=== PATIENT | female | born 1955 | race Caucasian/White ===

== ENCOUNTER 2020-04-18 08:53 | Emergency (ER) | payer BC, SELFPAY ==
--- NOTE | ~2020-04-18 | XR_ITS ---
EXAMINATION: XR hand LT min 3V INDICATION: Left hand swelling and pain TECHNIQUE: Three views of the left hand are obtained. COMPARISON: None available FINDINGS: There is no fracture, dislocation, or subluxation. There is mild polyarticular osteoarthrit is. Soft tissues are unremarkable. IMPRESSION: 1. No acute osseous abnormality. Reviewed, dictated and finalized at location A.
--- NOTE | 2020-04-18 09:10 | ED.UPPEXIN ---
HPI - Extremity Injury (Upper) General Chief Complaint: Extremity Injury, Upper Stated Complaint: fell left thumb /3rd-4th finger Time Seen by Provider: 04/18/20 09:10 Source: patient Mode of arrival: ambulatory Limitations: no limitations History of Present Illness HPI narrative: Jihan Rosario is a 64 yo female with a PMH of HTN, hypothyroid, GERD, RA, lupus, who fell in grass yesterday playing ball with granddaughter and hit dorsum of L hand, base of fingers 3/4. Mild swelling, no bruising. Limited finger movement Related Data Home Medications Medication Instructions Recorded Confirmed omeprazole magnesium 20 mg 20 mg PO DAILY 08/24/19 04/18/20 tablet,delayed release aspirin 81 mg tablet,delayed 81 mg PO DAILY 10/05/19 04/18/20 release Allergies Allergy/AdvReac Type Severity Reaction Status Date / Time No Known Allergies Allergy Verified 04/18/20 09:16 Review of Systems Review of Systems: Narrative: CONSTITUTIONAL: Denies fever, chills, sweats. EYES: Denies visual changes, redness, discharge. ENT: Denies rhinorrhea, congestion, sore throat, otalgia. CARDIOVASCULAR: Denies chest pain, palpitations, edema. RESPIRATORY: Denies dyspnea, wheezing, cough GASTROINTESTINAL: Denies abdominal pain, nausea, vomiting, diarrhea. GENITOURINARY: Denies dysuria, hematuria, abnormal discharge SKIN: Denies rash or itching. NEUROLOGIC: Denies numbness, or focal weakness. PSYCHIATRIC: Denies anxiety or depression. Left hand pain with limited movement after fall yesterday PMFSH Past Medical History Medical History ZENOBIA positive (~2013) Atypical chest pain Bilateral hand swelling Bilateral lower extremity edema Essential (primary) hypertension Inflammatory arthritis Rheumatoid factor positive SS-A antibody positive Surgical History Surgical History H/O elbow surgery H/O: hysterectomy Family History Family History Mother Hypertension Family history of diabetes mellitus in first degree relative Family history of coronary artery disease Family history of malignant neoplasm of breast in first degree relative Other Malignant neoplasm of prostate Social History Social History Years smoked: 15 Smoking status: Former smoker Tobacco type: cigarettes Second hand tobacco smoke exposure: No Smoking end date: 08/04/19 Alcohol intake: current Drinks per week: 6 Substance use: never Substance use type: does not use Gender identity (if verbalized by the patient): Female Comments At time of signature, I agree with nursing past medical, surgical, social and family history. There is no relevant family history pertinent to the presenting complaint. Exam Narrative: Exam Narrative: GENERAL: This is a well-nourished, well-developed patient, in mild distress. HEAD: normocephalic, atraumatic. EYES: Sclera clear/white. Vision is grossly intact. EARS: External ears normal, Hearing grossly intact. NOSE: External nose normal without nasal discharge, nares without redness, no rhinorrhea. THROAT: Mucous membranes moist, NECK: Neck supple, non-tender CARDIOVASCULAR: Regular rate and rhythm without murmurs, gallops, or rubs. RESPIRATORY: Clear to auscultation. Breath sounds equal bilaterally. No wheezes, rales, or rhonchi. GASTROINTESTINAL: Abdomen soft, SKIN: warm, intact with no suspicious lesions or rash, good texture and turgor. NEURO: awake, alert, and oriented to person, place and time. There were no obvious focal neurologic abnormalities. Steady gait EXTREMITIES: Normal range of motion of R hand, L hand, edema base of fingers 3 and 4, no ecchymosis, difficulty with finger opposition, able to splay fingers BACK: Nontender without deformity Course Course Emergency Course: X-ray lef
[2020-04-18 09:14] VITALS: BP 153/83; PULSE 80; RESP 16; TEMP 36.7; O2SAT 100
== END 2020-04-18 09:52 | disposition home or self-care (01) ==
PROVIDERS: Emergency Provider Nurse Practitioner; PCP Family Medicine
DX: S63.92XA Sprain of unspecified part of left wrist and hand, initial encounter (principal); I10 Essential (primary) hypertension; E03.9 Hypothyroidism, unspecified; M06.9 Rheumatoid arthritis, unspecified; Z79.82 Long term (current) use of aspirin; Z87.891 Personal history of nicotine dependence; W18.30XA Fall on same level, unspecified, initial encounter
CPT/HCPCS: 73130; 99213; G0463

== ENCOUNTER 2020-07-27 08:04 | Emergency (ER) | payer BC, SELFPAY ==
--- NOTE | ~2020-07-27 | XR_ITS ---
EXAMINATION: XR foot LT min 3V DATE: 07/27/2020 08:41 INDICATION: Left foot pain. Injury. TECHNIQUE: 4 views of left foot were obtained. COMPARISON: None. FINDINGS: Bone alignment is normal. There is a nondisplaced extra-articular transverse fracture of ba se of fifth metatarsal. There is mild osteoarthritis of first metatarsophalangeal joint and some of t he interphalangeal joints. IMPRESSION: 1. Nondisplaced transverse extra-articular fracture of base of fifth metatarsal. Reviewed, dictated and finalized at location B. ER MACHINE IMPRESSION: 1. Nondisplaced transverse extra-articular fracture of base of fifth metatarsal .
[2020-07-27 08:28] VITALS: BP 136/79; PULSE 93; RESP 16; TEMP 35.8; O2SAT 99
--- NOTE | 2020-07-27 08:28 | PC.NURSE ---
0828- Pt went from triage to x-ray
--- NOTE | 2020-07-27 08:34 | ED.LOWEXIN ---
HPI - Extremity Injury (Lower) General Chief Complaint: Extremity Injury, Lower Stated Complaint: left pain Source: patient Mode of arrival: ambulatory Limitations: no limitations History of Present Illness HPI Narrative: This is a 64-year-old white female that presented to the urgent care with left foot pain after a fall. According to patient she was climbing up stairs and turned backwards to reach for something and injured her left foot. Patient is unable to bear weight on her left foot. Her pulses are palpable, will range of motion with pain, sensation present, skin warm and there is no neurovascular compromise noted. The patient denies SOB, CP, palpitation, extremity numbness, lightheadedness, dizziness, constipation, diarrhea, chills, or fever. Related Data Home Medications Medication Instructions Recorded Confirmed hydrochlorothiazide 12.5 mg PO DAILY 07/27/20 07/27/20 levothyroxine 100 mcg PO DAILY 07/27/20 07/27/20 Allergies Allergy/AdvReac Type Severity Reaction Status Date / Time No Known Allergies Allergy Verified 07/27/20 09:00 Review of Systems Review of Systems: All systems reviewed & are unremarkable except as noted in HPI and below (10 point system review) [facility] Past Medical History Medical History (Updated 07/27/20 @ 09:28 by CASSI Garza) ZENOBIA positive (~2013) Atypical chest pain Bilateral hand swelling Bilateral lower extremity edema Essential (primary) hypertension Inflammatory arthritis Rheumatoid factor positive SS-A antibody positive Surgical History Surgical History H/O elbow surgery H/O: hysterectomy Family History Family History Mother Hypertension Family history of diabetes mellitus in first degree relative Family history of coronary artery disease Family history of malignant neoplasm of breast in first degree relative Other Malignant neoplasm of prostate Social History Social History Years smoked: 15 Smoking status: Former smoker Tobacco type: cigarettes Second hand tobacco smoke exposure: No Smoking end date: 08/04/19 Alcohol intake: current Drinks per week: 6 Substance use: never Substance use type: does not use Gender identity (if verbalized by the patient): Female Exam Narrative: Exam Narrative: GENERAL: This is a well-nourished, well-developed patient, in no apparent distress. HEAD: normocephalic, atraumatic. EYES: PERRL. Sclera clear/white. Vision is grossly intact. EARS: External ears normal, auditory canals clear and without drainage, TMs normal without perforation. Hearing grossly intact. NOSE: External nose normal with no obvious nasal discharge, nares without redness, no rhinorrhea. THROAT: Mucous membranes moist, posterior pharynx clear. NECK: Neck supple, non-tender without lymphadenopathy, masses or thyromegaly. CARDIOVASCULAR: Regular rate and rhythm without murmurs, gallops, or rubs. RESPIRATORY: Clear to auscultation. Breath sounds equal bilaterally. No wheezes, rales, or rhonchi. GASTROINTESTINAL: Abdomen soft, non-tender, nondistended. Bowel sounds are active. No hepato-splenomegaly, or palpable masses. No guarding. SKIN: warm, intact with no suspicious lesions or rash, good texture and turgor. NEURO: awake, alert, and oriented to person, place and time. There were no obvious focal neurologic abnormalities. Steady gait EXTREMITIES: Normal range of motion. No edema. No calf tenderness. Negative Homans sign bilaterally. BACK: Nontender without deformity or crepitance. No flank tenderness. Course Vital Signs Vital signs: Vital Signs Temperature 96.4 F L 07/27/20 08:28 Pulse Rate 93 07/27/20 08:28 Respiratory Rate 16 07/27/20 08:28 Blood Pressure 136/79 07/27/20 08:28 Pulse Oximetry 99 07/27/20 08:28 Temperature 96.4 F
== END 2020-07-27 09:50 | disposition home or self-care (01) ==
PROVIDERS: Emergency Provider Nurse Practitioner; PCP Family Medicine
DX: S92.355A Nondisplaced fracture of fifth metatarsal bone, left foot, initial encounter for closed fracture (principal); X50.9XXA Other and unspecified overexertion or strenuous movements or postures, initial encounter; I10 Essential (primary) hypertension; Z87.891 Personal history of nicotine dependence
CPT/HCPCS: 29515; 73630; 99214; G0463

== ENCOUNTER 2020-09-16 10:19 | Outpatient (CLI) | payer BC, SELFPAY ==
--- NOTE | ~2020-09-16 | XR_ITS ---
EXAMINATION: XR foot RT standing 2V INDICATION: Inflammatory arthritis TECHNIQUE: Two views of the right foot are obtained. COMPARISON: None available FINDINGS: There is no fracture, dislocation, or subluxation. Mild osteoarthritis is noted in several interphalangeal joints and at the first metatarsophalangeal joint. Soft tissues are unremarkable. IMPRESSION: 1. No acute osseous abnormality. Reviewed, dictated and finalized at location A. TELLER
--- NOTE | ~2020-09-16 | XR_ITS ---
EXAMINATION: XR foot LT standing 2V INDICATION: Inflammatory arthritis TECHNIQUE: Two views of the left foot are obtained. COMPARISON: 09/04/2020 FINDINGS: Again noted is a healing transverse fracture at the base of the fifth metatarsal. Mildly in creased calcified callus is present at the fracture site. There is mild osteoarthritis at several int erphalangeal joints and at the first metatarsophalangeal joint. The soft tissues are unremarkable. IMPRESSION: 1. Fifth metatarsal base fracture with routine healing. Reviewed, dictated and finalized at location A. E HAND
--- NOTE | ~2020-09-16 | XR_ITS ---
EXAMINATION: XR hand BI arthritis min 3V DATE: 09/16/2020 10:55 INDICATION: Inflammatory arthritis TECHNIQUE: Posteroanterior, lateral, and oblique views of the left and of the right hands as well as a ballcatchers view of both hands were obtained. COMPARISON: 04/18/2020 FINDINGS: Bone alignment is normal. There is no fracture. No abnormal erosions are identified. There is mild osteoarthritis of multiple interphalangeal joints bilaterally as well as in the carpal bones of the right hand. The soft tissues are unremarkable. IMPRESSION: 1. Mild polyarticular osteoarthritis. Reviewed, dictated and finalized at location A. N ASSISTANT
== END 2020-09-16 10:20 | disposition home or self-care (01) ==
PROVIDERS: PCP Family Medicine; Visit Provider Internal Medicine
DX: R76.8 Other specified abnormal immunological findings in serum (principal); M19.041 Primary osteoarthritis, right hand; M19.042 Primary osteoarthritis, left hand; S92.352A Displaced fracture of fifth metatarsal bone, left foot, initial encounter for closed fracture; X58.XXXA Exposure to other specified factors, initial encounter
CPT/HCPCS: 73130; 73620

== ENCOUNTER 2020-09-25 14:41 | Outpatient (CLI) | payer BC, SELFPAY ==
[2020-09-25 15:25] LABS: Basophils Percent Auto 0.6 % (0.2-1.2); Eosinophils Absolute Auto 0.1 K/mm3 (0-0.3); Eosinophils Percent Auto 2.3 % (0-4.4); Hematocrit 36.8 % (37.0-47.0); Hemoglobin 12.6 g/dL (12.0-15.0); Immature Granulocyte Absolute 0.01 K/mm3 (0.00-0.031); Immature Granulocyte Percent A 0.3 % (0-0.5); Lymphocytes Absolute Auto 1.11 K/mm3 (0.9-3.2); Lymphocytes Percent Auto 31.6 % (18.3-44.2); Mean Corpuscular HGB Conc 34.2 g/dl (32-36); Mean Corpuscular Hemoglobin 33.3 pg (26-34); Mean Corpuscular Volume 97.4 fl (80-100); Mean Platelet Volume 9.4 fl (7.4-10.4); Monocytes Absolute Auto 0.3 K/mm3 (0.1-0.6); Monocytes Percent Auto 8.5 % (2.6-8.5); Neutrophils Percent Auto 56.7 % (45.5-73.1); Platelet Count Result 245 k/mm3 (150-375); Red Blood Count 3.78 M/mm3 (4.2-5.4); Red Cell Distribution Width 12.5 % (11.5-14.5); White Blood Count 3.5 K/mm3 (4.5-10.0)
[2020-09-25 15:35] LABS: Alanine Aminotransferase 34 U/L (4-35); Albumin Level 4.6 g/dL (3.5-5.1); Alkaline Phosphatase 62 U/L (38-126); Anion Gap 5 mmol/L (8-16); Aspartate Amino Transferase 40 U/L (14-36); Bilirubin,Total 0.6 mg/dL (0.2-1.3); Blood Urea Nitrogen 12 mg/dL (7-17); CRP < 0.5 mg/dL (<1.0); Calcium 9.1 mg/dL (8.4-10.2); Carbon Dioxide 32 mmol/L (22-30); Chloride 97 mmol/L (98-107); Estimated Glomerular Filt Rate > 60; Glucose 94 mg/dL (65-105); Potassium 4.1 mmol/L (3.4-5.0); Sodium 134 mmol/L (137-145); Uric Acid 5.1 mg/dL (2.5-7.5)
[2020-09-25 15:40] LABS: Complement C3 94 mg/dL (88-165)
[2020-09-25 16:19] LABS: Erythrocyte Sedimentation Rate 18 mm/hr (0-20)
[2020-09-27 04:20] LABS: Anti Cardio Antibody IgM <12 MPL (<=12); Anti Cardiolipin Antibody IgA <11 APL (<=11); Anti Cardiolipin Antibody IgG <14 GPL (<=14)
[2020-09-27 20:45] LABS: Lupus dRVVT 1:1 Mix Interpreta Not Indicated; Lupus dRVVT Screen 28 sec (<=45); PTT-LA Screen 33 sec (<=40)
[2020-09-29 06:08] LABS: SM Antibody <1.0; SM/RNP Antibody <1.0
[2020-09-30 09:22] LABS: Anti Cyclic Citrullinated Pept <16 Units (<20)
[2020-10-02 04:53] LABS: Angiotensin Converting Enzyme 18 U/L (9-67)
== END 2020-09-25 14:42 | disposition home or self-care (01) ==
PROVIDERS: PCP Family Medicine; Visit Provider Internal Medicine
DX: R76.8 Other specified abnormal immunological findings in serum (principal); M19.90 Unspecified osteoarthritis, unspecified site
CPT/HCPCS: 36415; 80053; 82164; 82306; 84550; 85025; 85613; 85652; 85730; 86140; 86146; 86147; 86160; 86200; 86225; 86235

== ENCOUNTER 2021-08-25 09:20 | Outpatient (CLI) | payer BC, SELFPAY ==
[2021-08-25 09:56] LABS: Alanine Aminotransferase 33 U/L (4-35); Albumin Level 4.9 g/dL (3.5-5.1); Alkaline Phosphatase 63 U/L (38-126); Anion Gap 9 mmol/L (8-16); Aspartate Amino Transferase 38 U/L (14-36); Bilirubin,Total 0.6 mg/dL (0.2-1.3); Blood Urea Nitrogen 12 mg/dL (7-17); Calcium 9.5 mg/dL (8.4-10.2); Carbon Dioxide 28 mmol/L (22-30); Chloride 96 mmol/L (98-107); Cholesterol 200 mg/dL (0-200); Estimated Glomerular Filt Rate > 60; Glucose 97 mg/dL (65-110); HDL Direct 84 mg/dL; Potassium 4.3 mmol/L (3.4-5.0); Sodium 133 mmol/L (137-145); Triglycerides 78 mg/dL (<150)
[2021-08-25 09:59] LABS: Add Urine Microscopic? YES; Appearance Urine Cloudy (Clear); Bilirubin Urine Negative (Negative); Blood Urine Negative (Negative); Color Urine Yellow (Yellow); Glucose Urine UA Negative (Negative); Ketones Urine Negative (Negative); Leukocyte Esterase Ur Trace LEU/UL (NEGATIVE); Mucus Urine Rare /lpf; Nitrate Urine Negative (Negative); Protein Urine Negative (Negative); RBC Urine 0-2 /hpf (0-2); Specific Grav Ur 1.008 (1.001-1.035); Squamous Epithelial Cell Urine Few /hpf (Few); Urobilinogen Urine Negative mg/dL (<2.0); WBC Urine 0-3 /hpf (0-3)
[2021-08-25 10:07] LABS: LDL Cholesterol Direct 81 mg/dL
== END 2021-08-25 09:21 | disposition home or self-care (01) ==
LOC: ANHLAB 09:22
PROVIDERS: PCP Family Medicine; Visit Provider Family Medicine
DX: E03.9 Hypothyroidism, unspecified (principal); I10 Essential (primary) hypertension; E78.5 Hyperlipidemia, unspecified; Z00.00 Encounter for general adult medical examination without abnormal findings
CPT/HCPCS: 36415; 80053; 80061; 81001; 84443

== ENCOUNTER 2022-02-21 10:12 | Outpatient (CLI) | payer BC, SELFPAY ==
[2022-02-21 10:56] LABS: Alanine Aminotransferase 36 U/L (6-35); Albumin Level 4.7 g/dL (3.5-5.1); Alkaline Phosphatase 71 U/L (38-126); Anion Gap 5 mmol/L (8-16); Aspartate Amino Transferase 42 U/L (14-36); Bilirubin,Total 0.8 mg/dL (0.2-1.3); Blood Urea Nitrogen 9 mg/dL (7-17); Calcium 9.1 mg/dL (8.4-10.2); Carbon Dioxide 29 mmol/L (22-30); Chloride 100 mmol/L (98-107); Estimated Glomerular Filt Rate > 60; Glucose 95 mg/dL (65-110); Potassium 4.3 mmol/L (3.4-5.0); Sodium 134 mmol/L (137-145)
== END 2022-02-21 10:13 | disposition home or self-care (01) ==
PROVIDERS: PCP Family Medicine; Visit Provider Physician Assistant
DX: E03.9 Hypothyroidism, unspecified (principal); E66.3 Overweight; I10 Essential (primary) hypertension
CPT/HCPCS: 36415; 80053; 84443

== ENCOUNTER 2022-08-10 11:18 | Emergency (ER) | payer BC, SELFPAY ==
[2022-08-10 12:40] VITALS: BP 150/77; PULSE 69; RESP 18; TEMP 36.4; O2SAT 100
--- NOTE | 2022-08-10 13:55 | ED.URI ---
HPI - URI/Sore Throat General Chief Complaint: Upper Respiratory Infection Stated Complaint: chest congestion Time Seen by Provider: 08/10/22 13:46 Source: patient Mode of arrival: ambulatory Limitations: no limitations History of Present Illness HPI Narrative: patient presents today with a 2 day history of cough, chest congestion, and intermittent hoarseness. Denies fever shortness of breath. Denies any known sick contacts. Denies any history of COPD or asthma. She has tried no [id number] treatment prior to arrival. Related Data Home Medications Medication Instructions Recorded Confirmed ascorbic acid (vitamin C) 100 mg PO DAILY 07/27/20 02/21/22 aspirin 81 mg tablet,delayed 81 mg PO DAILY 07/27/20 02/21/22 release (Adult Aspirin Regimen) omeprazole 20 mg capsule,delayed 20 mg PO DAILY 07/27/20 02/21/22 release Allergies Allergy/AdvReac Type Severity Reaction Status Date / Time No Known Allergies Allergy Verified 07/16/22 15:00 Review of Systems Review of Systems: CONSTITUTIONAL: Denies body aches, fever, chills, or sweats. EYES: Denies visual changes, redness, or discharge. ENT: Denies rhinorrhea, congestion, sore throat, or otalgia.+ hoarseness CARDIOVASCULAR: Denies chest pain, palpitations, or edema. RESPIRATORY: Denies dyspnea.+ Cough, chest congestion GASTROINTESTINAL: Denies abdominal pain, nausea, vomiting, or diarrhea. GENITOURINARY: Denies dysuria or hematuria. SKIN: Denies rash, itching, or wounds. MUSCULOSKELETAL: Denies back pain, joint pain, or myalgia. NEUROLOGIC: Denies headache, numbness, tingling, or weakness. PSYCH: Denies depression or anxiety. [facility] Past Medical History Medical History ZENOBIA positive (~2013) Atypical chest pain Bilateral hand swelling Bilateral lower extremity edema Essential (primary) hypertension Inflammatory arthritis Overweight Rheumatoid factor positive Sicca syndrome SS-A antibody positive Surgical History Surgical History H/O elbow surgery H/O: hysterectomy Family History Family History Mother Hypertension Family history of diabetes mellitus in first degree relative Family history of coronary artery disease Family history of malignant neoplasm of breast in first degree relative Other Malignant neoplasm of prostate Social History Social History Smoking packs per day: 1 Smoking cigarettes per day: 20.0 Years smoked: 15 Smoking pack-years: 15.00 Smoking status: Former smoker Tobacco type: cigarettes Second hand tobacco smoke exposure: No Smoking end date: 08/04/19 Alcohol intake: current Drinks per week: 6 Substance use: never Substance use type: does not use Gender identity (if verbalized by the patient): Female Comments At time of signature, I have reviewed and agree with nursing past medical, surgical, social and family history unless otherwise noted. Please see nursing chart for further information. There is no relevant family history pertinent to the presenting complaint Exam Narrative: GENERAL: Well-appearing, well-nourished, and in no acute distress. HEAD: Normocephalic, atraumatic. EYES: EOMI. No redness or drainage. Conjunctivae normal. ENT: Mucous membranes pink and moist. Nares clear. No rhinorrhea. TMs normal bilaterally. Throat normal. Uvula midline. Mild hoarseness NECK: Normal AROM. Supple. No lymphadenopathy. CHEST: No respiratory distress. Clear to auscultation. HEART: Regular rate and rhythm. No murmur appreciated. Normal peripheral pulses. EXTREMITIES: Normal range of motion. No edema. SKIN: Warm, dry, no rash. Capillary refill normal. Normal skin turgor. NEURO: No focal deficits. Alert and oriented x3. Gait steady. PSYCH: Normal
== END 2022-08-10 14:07 | disposition home or self-care (01) ==
PROVIDERS: Emergency Provider Nurse Practitioner; PCP Family Medicine
DX: J06.9 Acute upper respiratory infection, unspecified (principal); Z87.891 Personal history of nicotine dependence; I10 Essential (primary) hypertension; M35.00 Sjogren syndrome, unspecified; M13.80 Other specified arthritis, unspecified site; M05.9 Rheumatoid arthritis with rheumatoid factor, unspecified
CPT/HCPCS: 99213; G0463

== ENCOUNTER 2022-09-10 09:47 | Outpatient (CLI) | payer BC, SELFPAY ==
--- NOTE | ~2022-09-10 | XR_ITS ---
EXAMINATION:XR cervical spine 4-5V DATE: 09/10/2022 10:20 INDICATION: Neck pain TECHNIQUE: AP, lateral in neutral, flexion, extension, and odontoid views of the cervical spine are p rovided. COMPARISON: 07/26/2011 FINDINGS: There are 2 mm of anterolisthesis of C4 on C5. No hypomobility is noted with flexion or ext ension. The odontoid is intact. No fracture is identified. The vertebral bodies are maintained. There is moderate loss of intervertebral disc space height at C6-7 and mild loss of intervertebral disc sp mohamud height at C5-6 and C7-T1. Small degenerative osteophytes project from the anterior endplates of m ultiple vertebral bodies. There is moderate to severe multilevel facet and uncovertebral joint osteoa rthritis. Prevertebral soft tissues are normal. IMPRESSION: 1. Moderate cervical spondylosis with interval worsening. Reviewed, dictated and finalized at location L. TUB COOKER
[2022-09-10 10:09] LABS: Hematocrit 39.3 % (37.0-47.0); Hemoglobin 13.3 g/dL (12.0-15.0); Mean Corpuscular HGB Conc 33.8 g/dl (32-36); Mean Corpuscular Hemoglobin 33.4 pg (26-34); Mean Corpuscular Volume 98.7 fl (80-100); Mean Platelet Volume 9.4 fl (7.4-10.4); Platelet Count Result 280 k/mm3 (150-375); Red Blood Count 3.98 M/mm3 (4.2-5.4); Red Cell Distribution Width 12.3 % (11.5-14.5); White Blood Count 4.4 K/mm3 (4.5-10.0)
[2022-09-10 10:18] LABS: Alanine Aminotransferase 37 U/L (6-35); Albumin Level 4.7 g/dL (3.5-5.1); Alkaline Phosphatase 75 U/L (38-126); Anion Gap 7 mmol/L (8-16); Aspartate Amino Transferase 38 U/L (14-36); Bilirubin,Total 0.7 mg/dL (0.2-1.3); Blood Urea Nitrogen 10 mg/dL (7-17); Calcium 8.9 mg/dL (8.4-10.2); Carbon Dioxide 29 mmol/L (22-30); Chloride 96 mmol/L (98-107); Cholesterol 194 mg/dL (0-200); Estimated Glomerular Filt Rate > 60; Glucose 103 mg/dL (65-110); HDL Direct 75 mg/dL; Potassium 4.4 mmol/L (3.4-5.0); Sodium 132 mmol/L (137-145); Triglycerides 69 mg/dL (<150)
[2022-09-10 10:29] LABS: LDL Cholesterol Direct 81 mg/dL
[2022-09-10 10:45] LABS: Add Urine Microscopic? YES; Appearance Urine Clear (Clear); Bilirubin Urine Negative (Negative); Blood Urine Negative (Negative); Color Urine Light Yellow (Yellow); Glucose Urine UA Negative (Negative); Ketones Urine Negative (Negative); Leukocyte Esterase Ur 2+ LEU/UL (NEGATIVE); Nitrate Urine Negative (Negative); Protein Urine Negative (Negative); Specific Grav Ur <= 1.005 (1.001-1.035); Urobilinogen Urine 0.2 mg/dL (<2.0); pH Urine 6.5 (5.0-9.0)
[2022-09-10 11:01] LABS: Mucus Urine Rare /lpf; Squamous Epithelial Cell Urine Many /hpf (Few)
== END 2022-09-10 09:48 | disposition home or self-care (01) ==
PROVIDERS: PCP Family Medicine; Visit Provider Physician Assistant
DX: Z00.00 Encounter for general adult medical examination without abnormal findings (principal); E03.9 Hypothyroidism, unspecified; I10 Essential (primary) hypertension; M54.2 Cervicalgia; R51.9 Headache, unspecified; M47.892 Other spondylosis, cervical region
CPT/HCPCS: 36415; 72050; 80053; 80061; 81001; 84443; 85027

== ENCOUNTER 2023-04-07 09:43 | Outpatient (CLI) | payer MEDICARE, SELFPAY ==
[2023-04-07 14:16] LABS: Alanine Aminotransferase 49 U/L (6-35); Albumin Level 4.9 g/dL (3.5-5.1); Alkaline Phosphatase 64 U/L (38-126); Anion Gap 8 mmol/L (8-16); Aspartate Amino Transferase 53 U/L (14-36); Blood Urea Nitrogen 13 mg/dL (7-17); Calcium 9.1 mg/dL (8.4-10.2); Carbon Dioxide 29 mmol/L (22-30); Chloride 85 mmol/L (98-107); Estimated Glomerular Filt Rate > 60; Glucose 102 mg/dL (65-110); Potassium 3.8 mmol/L (3.4-5.0); Sodium 122 mmol/L (137-145)
== END 2023-04-07 09:44 | disposition home or self-care (01) ==
PROVIDERS: PCP Family Medicine; Visit Provider Physician Assistant
DX: R51.9 Headache, unspecified (principal); E03.9 Hypothyroidism, unspecified; I10 Essential (primary) hypertension
CPT/HCPCS: 36415; 80053; 84443

== ENCOUNTER 2023-04-17 09:57 | Outpatient (CLI) | payer MEDICARE, SELFPAY ==
[2023-04-17 10:57] LABS: Anion Gap 8 mmol/L (8-16); Blood Urea Nitrogen 12 mg/dL (7-17); Carbon Dioxide 27 mmol/L (22-30); Chloride 96 mmol/L (98-107); Estimated Glomerular Filt Rate > 60; Glucose 88 mg/dL (65-110); Potassium 4.4 mmol/L (3.4-5.0); Sodium 131 mmol/L (137-145)
== END 2023-04-17 09:58 | disposition home or self-care (01) ==
LOC: ANHLAB 10:00
PROVIDERS: PCP Family Medicine; Visit Provider Physician Assistant
DX: E87.1 Hypo-osmolality and hyponatremia (principal)
CPT/HCPCS: 36415; 80048

== ENCOUNTER 2023-04-20 12:11 | Emergency (ER) | payer MEDICARE, SELFPAY | END 2023-04-20 13:05 | disposition home or self-care (01) | PROVIDERS: Emergency Provider Registered Nurse; PCP Family Medicine | DX: L25.9 Unspecified contact dermatitis, unspecified cause (principal); I10 Essential (primary) hypertension; E03.9 Hypothyroidism, unspecified | CPT/HCPCS: 96372; 99213; G0463; J1040 ==

== ENCOUNTER 2023-07-17 06:54 | Day surgery (SDC) | payer MEDICARE, SELFPAY ==
[2023-05-14 08:19] VITALS: BMI 28.3
[2023-06-24 10:21] VITALS: BMI 28.0
--- NOTE | 2023-07-16 15:07 | WPDANESEPPF ---
Anes - Initial Pre Proc Eval Procedure: Operation Date: 07/17/23 09:00 Proposed Procedures p Screening Colonoscopy - Bob Gusman MD Date/Time: 07/16/23 15:07 Surgeon: Bob Gusman MD Pre Op Diagnosis: Neoplasm Screening Patient Data Age: 67 Gender: F Height: 1.65 m Weight: 76.5 kg Allergies Allergy/AdvReac Type Severity Reaction Status Date / Time No Known Allergies Allergy Verified 07/17/23 07:36 Home Medications Medication Instructions Recorded Confirmed Type ascorbic acid (vitamin C) 100 mg PO DAILY 07/27/20 07/17/23 History omeprazole 20 mg capsule,delayed 20 mg PO DAILY 07/27/20 07/17/23 History release albuterol sulfate 90 mcg/actuation 2 puff inhalation Q4-6H PRN 08/10/22 07/17/23 Rx aerosol inhaler (ProAir HFA) shortness of breath or wheezing #18 grams inhalational spacing device #1 ea 08/10/22 07/17/23 Rx (BreatheRite MDI Spacer) meloxicam 15 mg tablet 15 mg PO DAILY PRN neck pain 11/14/22 07/17/23 History levothyroxine 100 mcg tablet 100 mcg PO DAILY #90 tabs 12/23/22 07/17/23 Rx ciclopirox 8 % topical solution 1 applic topical QHS 4 weeks #6.6 04/07/23 07/17/23 Rx mL hydrochlorothiazide 12.5 mg tablet 12.5 mg PO DAILY #90 tabs 04/07/23 07/17/23 Rx sodium,potassium,mag sulfates 17.5 See Rx Instructions PO .COMPLEX 05/14/23 07/17/23 Rx gram-3.13 gram-1.6 gram oral soln #354 mL (Suprep Bowel Prep Kit) ascorbic acid (vitamin C) 100 mg 100 mg PO DAILY 06/24/23 07/17/23 History tablet hydrochlorothiazide 12.5 mg tablet 12.5 mg PO DAILY 06/24/23 07/17/23 History levothyroxine 25 mcg tablet 25 mcg PO DAILY 06/24/23 07/17/23 History omeprazole 20 mg tablet,delayed 20 mg PO DAILY 06/24/23 07/17/23 History release Patient hx anesthesia problems: none Family hx anesthesia problems: none Results Review: All pre-operative results and documents have been reviewed as part of the pre-operative evaluation. [facility] Past Medical History Medical History (Updated 07/17/23 @ 08:23 by Bob Gusman MD) ZENOBIA positive (~2013) Atypical chest pain Bilateral hand swelling Bilateral lower extremity edema Degenerative joint disease of cervical spine Essential (primary) hypertension Gastro-esophageal reflux disease without esophagitis Hypothyroidism, unspecified Inflammatory arthritis Overweight Rheumatoid factor positive Sicca syndrome SS-A antibody positive Surgical History Surgical History (System 06/24/23 @ 11:56 by Peri Walsh) H/O elbow surgery H/O: hysterectomy Family History Family History (System 06/24/23 @ 11:56 by Peri Walsh) Mother Hypertension Family history of diabetes mellitus in first degree relative Family history of coronary artery disease Family history of malignant neoplasm of breast in first degree relative Other Malignant neoplasm of prostate Social History Social History (System 06/24/23 @ 11:56 by Peri Walsh) Smoking packs per day: 1 Smoking cigarettes per day: 20.0 Years smoked: 15 Smoking pack-years: 15.00 Smoking status: Never smoker Tobacco type: cigarettes Second hand tobacco smoke exposure: No Smoking end date: 08/04/19 Alcohol intake: current Drinks per week: 6 Substance use: never Substance use type: does not use Living arrangements: with family Occupation/Education: retired Gender identity (if verbalized by the patient): Female Spiritual care concerns: No Anes - Eval Final PreProcedure Day of Procedure 07/16/23 15:07 Patient weight: overweight Heart: regular rate and rhythm Lungs: clear to auscultation Airway: Mallampati scale class II Neurological: alert and oriented Last oral intake: >/= 8 hours ASA classification: III Emergent: no Anesthetic plan: proceed Anesthesia type and monitoring: general GIVS and standard monitoring Results Review: All pre-operative results and documents have been reviewed as part of the pre-operative evaluation. Informed Co
[2023-07-17 07:38] VITALS: BP 131/84; PULSE 79; RESP 20; TEMP 36.4; O2SAT 100
[2023-07-17] MEDS: LACTATED RINGERS 1,000 ML 150 ML IV CONT (07:48)
--- NOTE | 2023-07-17 08:21 | PM.HPGS ---
History of Present Illness History of Present Illness Consent: Risks, benefits, and alternatives have been discussed and questions answered. Patient agrees to proceed with procedure. Chief complaint: Neoplasm Screening Narrative: Jihan Rosario is a 67 year old female Presents for screening colonoscopy. Patient has current weight appetite bowel movements are normal. Patient is abdominal pain. Has had no bleeding. History noncontributory. Previous exam 10 years ago was unremarkable. Review of Systems Review of Systems: Review of systems noncontributory. [facility] Past Medical History Medical History (Updated 07/17/23 @ 08:23 by Bob Gusman MD) ZENOBIA positive (~2013) Atypical chest pain Bilateral hand swelling Bilateral lower extremity edema Degenerative joint disease of cervical spine Essential (primary) hypertension Gastro-esophageal reflux disease without esophagitis Hypothyroidism, unspecified Inflammatory arthritis Overweight Rheumatoid factor positive Sicca syndrome SS-A antibody positive Surgical History Surgical History (System 06/24/23 @ 11:56 by Peri Walsh) H/O elbow surgery H/O: hysterectomy Family History Family History (System 06/24/23 @ 11:56 by Peri Walsh) Mother Hypertension Family history of diabetes mellitus in first degree relative Family history of coronary artery disease Family history of malignant neoplasm of breast in first degree relative Other Malignant neoplasm of prostate Social History Social History (System 06/24/23 @ 11:56 by Peri Walsh) Smoking packs per day: 1 Smoking cigarettes per day: 20.0 Years smoked: 15 Smoking pack-years: 15.00 Smoking status: Never smoker Tobacco type: cigarettes Second hand tobacco smoke exposure: No Smoking end date: 08/04/19 Alcohol intake: current Drinks per week: 6 Substance use: never Substance use type: does not use Living arrangements: with family Occupation/Education: retired Gender identity (if verbalized by the patient): Female Spiritual care concerns: No Meds Home Medications and Allergies Home Medications Medication Instructions Recorded Confirmed Type ascorbic acid (vitamin C) 100 mg PO DAILY 07/27/20 07/17/23 History omeprazole 20 mg capsule,delayed 20 mg PO DAILY 07/27/20 07/17/23 History release albuterol sulfate 90 mcg/actuation 2 puff inhalation Q4-6H PRN 08/10/22 07/17/23 Rx aerosol inhaler (ProAir HFA) shortness of breath or wheezing #18 grams inhalational spacing device #1 ea 08/10/22 07/17/23 Rx (BreatheRite MDI Spacer) meloxicam 15 mg tablet 15 mg PO DAILY PRN neck pain 11/14/22 07/17/23 History levothyroxine 100 mcg tablet 100 mcg PO DAILY #90 tabs 12/23/22 07/17/23 Rx ciclopirox 8 % topical solution 1 applic topical QHS 4 weeks #6.6 04/07/23 07/17/23 Rx mL hydrochlorothiazide 12.5 mg tablet 12.5 mg PO DAILY #90 tabs 04/07/23 07/17/23 Rx sodium,potassium,mag sulfates 17.5 See Rx Instructions PO .COMPLEX 05/14/23 07/17/23 Rx gram-3.13 gram-1.6 gram oral soln #354 mL (Suprep Bowel Prep Kit) ascorbic acid (vitamin C) 100 mg 100 mg PO DAILY 06/24/23 07/17/23 History tablet hydrochlorothiazide 12.5 mg tablet 12.5 mg PO DAILY 06/24/23 07/17/23 History levothyroxine 25 mcg tablet 25 mcg PO DAILY 06/24/23 07/17/23 History omeprazole 20 mg tablet,delayed 20 mg PO DAILY 06/24/23 07/17/23 History release Allergies Allergy/AdvReac Type Severity Reaction Status Date / Time No Known Allergies Allergy Verified 07/17/23 07:36 Vital Signs Vital Signs - 24 hr 07/17/23 07:38 Temperature 97.5 F L Pulse Rate 79 Respiratory Rate 20 Blood Pressure 131/84 Pulse Oximetry 100 Oxygen Delivery Room Air Exam Narrative: Physical exam reveals patient to be alert. Vital signs stable. HEENT exam is unremarkable. Patient is anicteric. Lungs are clear to auscultation and percussion. heart is without murmur or extra
[2023-07-17] MEDS: SIMETHICONE ORAL SUSPENSION 20 MG/0.3 ML 30 ML BOTTLE 0.6 ML IRRIGATION (09:16)
[2023-07-17 09:23] VITALS: BP 117/73; PULSE 70; RESP 16; O2SAT 99
[2023-07-17 09:33] VITALS: BP 124/71; PULSE 74; RESP 16; O2SAT 100
[2023-07-17 09:43] VITALS: BP 134/77; PULSE 70; RESP 16; O2SAT 100
--- NOTE | 2023-07-17 12:43 | WPDANESPN ---
Anes - Prog Note Post-Op Date/Time: 07/17/23 12:43 Cardiovascular status: normal Respiratory status: normal Airway patency: baseline Mental status: baseline Post-Op hydration status: normal Vital Signs: Last Vital Signs Temp 36.4 C L 07/17/23 07:38 Pulse 70 07/17/23 09:43 Resp 16 07/17/23 09:43 BP 134/77 07/17/23 09:43 Pulse Ox 100 07/17/23 09:43 O2 Del Method Room Air 07/17/23 09:43 Pain Score (VAS): 0 I/O: Intake & Output 07/16/23 07/17/23 07/17/23 23:59 07:59 15:59 Intake Total 150 Balance 150 Post-procedural complaints: none Patient Feedback: Patient satisfied with anesthetic care. Other Findings: Patient vital signs back to baseline. Patient denies nausea and vomiting. Patient's pain under control. Patient OK for discharge.
== END 2023-07-17 10:01 | disposition home or self-care (01) ==
PROVIDERS: PCP Family Medicine; Visit Provider Internal Medicine Gastroenterology
PROC: 0DJD8ZZ Inspection of Lower Intestinal Tract, Via Natural or Artificial Opening Endoscopic (ICD-10-PCS; CPT 45378; principal; 2023-07-17 09:00)
DX: Z12.11 Encounter for screening for malignant neoplasm of colon (principal); K64.8 Other hemorrhoids
CPT/HCPCS: 45378

== ENCOUNTER 2023-11-27 14:24 | Outpatient (CLI) | payer MEDICARE, SELFPAY ==
[2023-11-27 15:22] LABS: Basophils Absolute Auto 0.1 K/mm3 (0.0-0.1); Basophils Percent Auto 0.7 % (0.2-1.2); Eosinophils Absolute Auto 0.1 K/mm3 (0-0.3); Eosinophils Percent Auto 1.6 % (0-4.4); Hematocrit 36.7 % (37.0-47.0); Hemoglobin 12.4 g/dL (12.0-15.0); Immature Granulocyte Absolute 0.03 K/mm3 (0.00-0.031); Immature Granulocyte Percent A 0.4 % (0-0.5); Lymphocytes Absolute Auto 1.76 K/mm3 (0.9-3.2); Lymphocytes Percent Auto 25.5 % (18.3-44.2); Mean Corpuscular HGB Conc 33.8 g/dl (32-36); Mean Corpuscular Hemoglobin 32.8 pg (26-34); Mean Corpuscular Volume 97.1 fl (80-100); Monocytes Absolute Auto 0.6 K/mm3 (0.1-0.6); Monocytes Percent Auto 8.7 % (2.6-8.5); Neutrophils Absolute Auto 4.3 K/mm3 (1.3-6.7); Neutrophils Percent Auto 63.1 % (45.5-73.1); Platelet Count Result 311 k/mm3 (150-375); Red Blood Count 3.78 M/mm3 (4.2-5.4); Red Cell Distribution Width 13.1 % (11.5-14.5); White Blood Count 6.9 K/mm3 (4.5-10.0)
== END 2023-11-27 14:25 | disposition home or self-care (01) ==
LOC: ANHLAB 14:27
PROVIDERS: PCP Family Medicine; Visit Provider Physician Assistant
DX: D72.829 Elevated white blood cell count, unspecified (principal)
CPT/HCPCS: 36415; 85025

== ENCOUNTER 2024-01-19 14:59 | Outpatient (CLI) | payer MEDICARE, SELFPAY ==
--- NOTE | ~2024-01-19 | XR_ITS ---
AP view of the pelvis and AP and lateral views of the right hip Clinical history: Pain Findings: No acute fracture or dislocation is seen. Osseous alignment is anatomic. Bilateral hip and SI joint spaces are preserved. Soft tissues are unremarkable. Impression: No significant abnormality is seen. Reviewed, dictated and finalized at location . Impression: No significant abnormality is seen.
--- NOTE | ~2024-01-19 | XR_ITS ---
EXAM: XR knee RT 3V DATE: 01/19/2024 15:17 HISTORY: M25.561 - Pain in right knee, anterior pain x 3 wks, no inju . COMPARISON: None available. FINDINGS: Normal mineralization. No fracture or dislocation. No lytic or blastic lesion. Mild tricom partmental osteophytosis. Small joint effusion. No erosion or periosteal change. Soft tissues within normal limits. IMPRESSION: Mild tricompartmental osteoarthritis. Reviewed, dictated and finalized at location K.
== END 2024-01-19 15:00 | disposition home or self-care (01) ==
LOC: ANHIMG 15:00
PROVIDERS: PCP Family Medicine; Visit Provider Physician Assistant Medical
DX: M25.551 Pain in right hip (principal); M17.11 Unilateral primary osteoarthritis, right knee
CPT/HCPCS: 73502; 73562

== ENCOUNTER 2024-04-14 12:51 | Outpatient (CLI) | payer MEDICARE, SELFPAY ==
[2024-04-14 13:31] LABS: Alanine Aminotransferase 57 U/L (6-35); Albumin Level 4.9 g/dL (3.5-5.1); Alkaline Phosphatase 77 U/L (38-126); Anion Gap 10 mmol/L (4-12); Aspartate Amino Transferase 55 U/L (14-36); Blood Urea Nitrogen 11 mg/dL (7-17); Calcium 9.2 mg/dL (8.4-10.2); Carbon Dioxide 27 mmol/L (22-30); Chloride 88 mmol/L (98-107); Estimated Glomerular Filt Rate > 60; Glucose 97 mg/dL (65-110); Potassium 3.9 mmol/L (3.4-5.0); Sodium 125 mmol/L (137-145)
== END 2024-04-14 12:52 | disposition home or self-care (01) ==
PROVIDERS: PCP Family Medicine; Visit Provider Physician Assistant Medical
DX: E03.9 Hypothyroidism, unspecified (principal); I10 Essential (primary) hypertension; M35.00 Sjogren syndrome, unspecified
CPT/HCPCS: 36415; 80053; 84443

== ENCOUNTER 2024-04-23 07:45 | Outpatient (CLI) | payer MEDICARE, SELFPAY ==
[2024-04-23 09:47] LABS: Anion Gap 11 mmol/L (4-12); Blood Urea Nitrogen 13 mg/dL (7-17); Calcium 9.5 mg/dL (8.4-10.2); Carbon Dioxide 28 mmol/L (22-30); Chloride 93 mmol/L (98-107); Estimated Glomerular Filt Rate > 60; Glucose 88 mg/dL (65-110); Potassium 4.3 mmol/L (3.4-5.0); Sodium 132 mmol/L (137-145)
== END 2024-04-23 07:46 | disposition home or self-care (01) ==
LOC: ANHLAB 07:47
PROVIDERS: PCP Family Medicine; Visit Provider Physician Assistant
DX: E87.1 Hypo-osmolality and hyponatremia (principal)
CPT/HCPCS: 36415; 80048

== ENCOUNTER 2024-06-22 09:27 | Outpatient (CLI) | payer MEDICARE, SELFPAY ==
--- NOTE | ~2024-06-22 | MR_ITS ---
MRI of the right knee Clinical history: Pain Technique: Coronal proton density and proton density-weighted images, sagittal proton-density and T2 fat-sat images, and axial proton-density fat-saturated images were acquired. Findings: Anterior and posterior cruciate ligaments are intact. Medial collateral ligament and the la teral collateral ligament complex are intact. Popliteus tendon is intact. There is complex tearing of the posterior root of the medial meniscus, probably with radial and flap tear components. No lateral meniscal tear seen. There is grade IV chondromalacia at the patellar apex extending to the medial facet. There is moderat e chondral malacia the medial joint line. Small tricompartmental osteophyte are present. Extensor mechanism is intact. Small joint effusion present. There is a large Barajas's cyst. Impression: Complex tearing of the posterior root/posterior horn of the medial meniscus, as detailed above. Large Barajas's cyst with small joint effusion. Probable mild degenerative change overall, as detailed above, with chondromalacia at the patella and medial joint line. Reviewed, dictated and finalized at location . Impression: Complex tearing of the posterior root/posterior horn of the medial meniscus, as detailed above. Large Barajas's cyst with small joint effusion. Probable mild degenerative change overall, as detailed above, with chondromalac ia at the patella and medial joint line.
== END 2024-06-22 09:28 | disposition home or self-care (01) ==
LOC: MICIMG 09:28
PROVIDERS: PCP Family Medicine; Visit Provider Nurse Practitioner Family
DX: M25.461 Effusion, right knee (principal); S83.231A Complex tear of medial meniscus, current injury, right knee, initial encounter; X58.XXXA Exposure to other specified factors, initial encounter
CPT/HCPCS: 73721

== ENCOUNTER 2024-07-15 13:55 | Outpatient (CLI) | payer MEDICARE, SELFPAY ==
--- NOTE | 2024-07-15 15:24 | ECG_ITS ---
Test Date: 2024-07-15 15:45:51 Measurements Intervals [place] Rate: 69 P: 68 GA: 198 QRS: -2 QRSD: 83 T: 11 QT: 399 QTc: 428 Interpretive Statements SINUS RHYTHM DELAYED PRECORDIAL R/S TRANSITION LOW QRS VOLTAGE IN PRECORDIAL LEADS BORDERLINE T WAVE ABNORMALITY- INFERIOR LEADS BASELINE ARTIFACT- AVR, AVL, AVF, V4-V6 BORDERLINE ECG No previous ECG available for comparison Electronically Signed On 07-16-2024 06:35:30 CDT by Slava Martinez D.O.
[2024-07-15 16:04] LABS: Anion Gap 11 mmol/L (4-12); Blood Urea Nitrogen 12 mg/dL (7-17); Calcium 9.1 mg/dL (8.4-10.2); Carbon Dioxide 27 mmol/L (22-30); Chloride 92 mmol/L (98-107); Estimated Glomerular Filt Rate > 60; Glucose 92 mg/dL (65-110); Potassium 3.6 mmol/L (3.4-5.0); Sodium 130 mmol/L (137-145)
[2024-07-15 16:10] LABS: Prothrombin Time 13.6 Seconds (11.1-14.7)
[2024-07-15 16:14] LABS: Partial Thromboplastin Time 31.7 Seconds (22.3-36.8)
== END 2024-07-15 13:56 | disposition home or self-care (01) ==
PROVIDERS: Anesthesiology; PCP Family Medicine; Visit Provider Orthopaedic Surgery
DX: K75.81 Nonalcoholic steatohepatitis (NASH) (principal); I10 Essential (primary) hypertension; Z51.81 Encounter for therapeutic drug level monitoring
CPT/HCPCS: 36415; 80048; 85610; 85730; 93005

== ENCOUNTER 2024-07-20 01:15 | Day surgery (SDC) | payer MEDICARE, SELFPAY ==
[2024-07-12 15:23] VITALS: BMI 28.7
--- NOTE | 2024-07-12 15:51 | PC.NURSE ---
Report to the Outpatient Waiting Room, entrance under the green pavilion located off [facility], at time ___10:00AM____ on date ___07/20/24____. Planned Procedure Time: ___12:00PM .? Time changes happen often and if your time is changed the preop area will call you the afternoon before. - You and your visitor will be asked to self-screen and do not enter if you have any COVID symptoms. Please call surgeon if you need to reschedule. - A mask is optional within the hospital at this time. Patients may have clear liquids (water, carbonated beverages, clear teas, apple juice) until 3 hours (9:00AM) prior to surgery with a maximum of 20 ounces. - No food from midnight until time of surgery and no smoking. Take only the following medications with a SIP of water on the morning of surgery: LEVOTHYROXINE DO NOT STOP ANY OF YOUR OTHER PRESCRIPTION MEDICATIONS PRIOR TO SURGERY EXCEPT THE FOLLOWING Medications to discontinue per physician HOLD ALL VITAMINS/SUPPLEMENTS 3 DAYS PRE-OP PER ANESTHESIA- LAST DOSE 07/16/24. HOLD NSAIDS(MELOXICAM/IBUPROFEN) PER DR TAN. Please no make-up, nail icelandic, hairspray, perfume, deodorant, or body powder the day of surgery.? No jewelry (including any body piercings) or valuables the day of surgery, leave them at home.? Please take a shower or bath the night before, or the morning of, surgery with an antibacterial soap.? Wear comfortable, loose fitting clothing.? - Jewelry must be removed prior to entering the operating room.? Rings and piercings that are not removed may be cut off. - The hospital will not accept responsibility for valuables.? - Please leave all valuables, including medications, at home the day of surgery. If you are going home after surgery, a licensed commercial driver's license driver must drive you home.? - NO public transportation without another adult if you receive anesthesia. - We recommend that an adult stay with you for 24 hours following discharge. - We also recommend that you do not drive, make important decision, drink alcoholic beverages, or take any drugs that were not prescribed by your health care provider for at least 24 hours after your discharge time. Follow any additional instructions given to you from your surgeon. Telephone instructions given to PATIENT and asked if any additional questions and then verbalized understanding. Patient advised to call surgeon office or pre surgery nurse liaison [phone] if any additional questions.
[2024-07-20] VITALS (10 sets, daily range): BP systolic 130–181; BP diastolic 82–95; PULSE 53–76; RESP 8–16; TEMP 36.4; O2SAT 95–100; BMI 29.0
[2024-07-20] MEDS: LACTATED RINGERS 1,000 ML 30 ML IV CONT ×2 (10:30→14:39)
[2024-07-20] MEDS: ACETAMINOPHEN 500 MG TABLET 1000 MG PO (10:39)
[2024-07-20] MEDS: CELECOXIB 200 MG CAPSULE PO (10:39)
--- NOTE | 2024-07-20 10:51 | P.PNAN_ITS ---
Anes - Initial Pre Proc Eval Procedure: Operation Date: 07/20/24 12:00 Proposed Procedures p Right Knee Arthroscopy, Proceed As Indicated - Umberto Vaca MD Date/Time: 07/20/24 10:51 Surgeon: Umberto Vaca MD Pre Op Diagnosis: right knee medial meniscal tear Patient Data Age: 68 Gender: F Height: 1.64 m Weight: 77 kg Allergies Allergy/AdvReac Type Severity Reaction Status Date / Time No Known Allergies Allergy Verified 07/20/24 11:19 Home Medications Medication Instructions Recorded Confirmed Type ciclopirox 8 % topical solution 1 applic topical QHS 4 weeks #6.6 03/30/24 07/20/24 Rx mL omeprazole 20 mg capsule,delayed 20 mg PO DAILY #90 caps 04/29/24 07/12/24 Rx release ascorbic acid (vitamin C) 1,000 mg 1 g PO DAILY 07/12/24 07/12/24 History capsule camphor-menthol 0.2 %-3.5 % 1 applic topical DAILY PRN Pain 07/12/24 07/12/24 History topical gel cholecalciferol (vitamin D3) 25 25 mcg PO DAILY 07/12/24 07/12/24 History mcg (1,000 unit) capsule hydrochlorothiazide 25 mg tablet 25 mg PO QAM 07/12/24 07/12/24 History levothyroxine 100 mcg tablet 100 mcg PO QAM 07/12/24 07/20/24 History meloxicam 15 mg tablet 15 mg PO DAILY PRN Pain 07/12/24 07/20/24 History zinc 50 mg capsule 50 mg PO DAILY 07/12/24 07/12/24 History chlorhexidine gluconate 4 % 1 applic topical ONCE #237 mL 07/13/24 Rx topical liquid (Hibiclens) Laboratory Tests 07/20/24 10:16 Sodium Pending Patient hx anesthesia problems: none Family hx anesthesia problems: none Results Review: All pre-operative results and documents have been reviewed as part of the pre- operative evaluation. [facility] Past Medical History Medical History (Updated 06/28/24 @ 14:10 by DELANO Valle) ZENOBIA positive (~2013) Atypical chest pain Bilateral hand swelling Bilateral lower extremity edema Chondromalacia Degenerative joint disease of cervical spine Essential (primary) hypertension Gastro-esophageal reflux disease without esophagitis Hypothyroidism, unspecified Inflammatory arthritis Knee pain Medial meniscus tear Overweight Rheumatoid factor positive Right knee DJD Sicca syndrome SS-A antibody positive Surgical History Surgical History H/O elbow surgery H/O: hysterectomy Family History Family History Mother Hypertension Family history of diabetes mellitus in first degree relative Family history of coronary artery disease Family history of malignant neoplasm of breast in first degree relative Other Malignant neoplasm of prostate Social History Social History Smoking packs per day: 0.5 Smoking cigarettes per day: 10.0 Years smoked: 15 Smoking pack-years: 7.50 Smoking status: Former smoker Tobacco type: cigarettes Second hand tobacco smoke exposure: No Smoking end date: 07/16/19 Alcohol intake: current Drinks per week: 42 Substance use: never Substance use type: does not use Living arrangements: with family Additional living arrangements comments: [place] Occupation/Education: retired Gender identity (if verbalized by the patient): Female Spiritual care concerns: No Anes - Eval Final PreProcedure Day of Procedure 07/20/24 10:51 Patient weight: normal Heart: regular rate and rhythm Lungs: clear to auscultation Airway: Mallampati scale class II Neurological: alert and oriented Last oral intake: >/= 8 hours ASA classification: III Emergent: no Anesthetic plan: proceed Anesthesia type and monitoring: general LMA and standard monitoring Results Review: All pre-operative results and documents have been reviewed as part of the pre- operative evaluation. Informed Consent: The patient's anesthetic plan and its attendant risks and benefits were discussed with the patient/family/POA. Questions were solicited and answers provided to the satisfaction of the patient/family/POA.
[2024-07-20 11:05] LABS: Sodium 133 mmol/L (137-145)
--- NOTE | 2024-07-20 12:00 | WPDHPUPDATE1 ---
History and Physical Update Update Date/Time: 07/20/24 12:00 History and Physical has been reviewed, including an updated exam of the patient. There are NO changes in the patient's condition. Risks, benefits, and alternatives have been discussed and questions answered. Patient agrees to proceed with procedure.
[2024-07-20] MEDS: ceFAZolin 2 GM/D5W 50 ML 2 GM/50 ML BAG IVPB (13:33)
[2024-07-20] MEDS: BUPivacaine HCL 0.5% 10 ML AMP 30 ML INFILTRATE (14:27)
--- NOTE | 2024-07-20 14:46 | W.PM.PROC2 ---
Procedure Note - Detailed Date of Procedure 07/20/24 Pre-op Diagnosis right knee medial meniscal tear and lateral meniscus tear Post-op Diagnosis Other Procedure Performed RIGHT KNEE SCOPE Surgeon Umberto Vaca MD Anesthesia General Description of Procedure PATIENT WAS TAKEN TO THE OR. THE RIGHT LEG WAS PREPPED AND DRAPED STERILE. TROCARS WERE PLACED IN THE USUAL FASHION. CAMERA WAS INTRODUCED. THERE WAS CHONDROMALACIA TO THE PATELLA FEMORAL JOINT. THERE WAS A LOT OF SYNOVITIS IN ALL COMPARTMENTS. THE MEDIAL COMPARTMENT SHOWED CHONDROMALACIA TO THE MEDIAL FEMORAL CONDYLE. A SHAVER WAS USED TO PREFORM A CHONDROPLASTY. THERE WAS A COMPLEX MEDIAL MENISCUS TEAR. THE TEAR WAS RESECTED WITH A BITER AND A SHAVER DOWN TO A SMOOTH BASE. THE ACL WAS INTACT. THE LATERAL MENISCUS WAS TORN. A PARTIAL MENISCECTOMY WAS PREFORMED. THE MENISCUS WAS DEBRIDED TO A SMOOTH BASE. THE LATERAL COMPARTMENT HAD MINIMAL CHONDROMALACIA. CHONDROPLASTY WAS PREFORMED. A SYNOVECTOMY WAS PREFORMED WELL. THE PATELLO FEMORAL JOINT UNDERWENT CHONDROPLASTY. THERE WAS GRADE 2 CHONDROMALACIA IN PART OF THE TROCHLEA AND PART OF THE PATELLA. SYNOVECTOMY WAS PREFORMED IN THE SUPERIOR MEDIAL COMPARTMENT. THE WOUNDS WERE APPROXIMATED WITH 4.0 NYLON. STERILE DRESSING WAS APPLIED. PATIENT WAS EXTUBATED. Estimated Blood Loss 5 Complications No immediate complications Condition Stable Disposition PACU
[2024-07-20] MEDS: fentaNYL CITRATE INJ (*CRX) 100 MCG/2 ML VIAL 25 MCG IV PUSH ×6 (15:05→15:27)
[2024-07-20] MEDS: ONDANSETRON INJ 4 MG/2 ML VIAL IV PUSH (15:50)
[2024-07-20] MEDS: oxyCODONE HCL (*CRX) 5 MG TAB IR PO (16:00)
== END 2024-07-20 17:10 | disposition home or self-care (01) ==
PROVIDERS: Anesthesiology; PCP Family Medicine; Visit Provider Orthopaedic Surgery
PROC: (CPT 29870; principal; 2024-07-20 12:00)
DX: S83.231A Complex tear of medial meniscus, current injury, right knee, initial encounter (principal); S83.281A Other tear of lateral meniscus, current injury, right knee, initial encounter; M94.261 Chondromalacia, right knee; M65.861 Other synovitis and tenosynovitis, right lower leg; M17.11 Unilateral primary osteoarthritis, right knee; I10 Essential (primary) hypertension; K21.9 Gastro-esophageal reflux disease without esophagitis; E03.9 Hypothyroidism, unspecified; X58.XXXA Exposure to other specified factors, initial encounter; Z98.890 Other specified postprocedural states; Z87.891 Personal history of nicotine dependence; Z80.3 Family history of malignant neoplasm of breast; Z80.42 Family history of malignant neoplasm of prostate; Z80.49 Family history of malignant neoplasm of other genital organs
CPT/HCPCS: 29880; 36415; 84295; A9270; J0690; J1100; J2003; J2250; J2405; J2704; J3010; J7120

== ENCOUNTER 2024-10-06 07:02 | Outpatient (CLI) | payer MEDICARE, SELFPAY ==
[2024-10-06 08:06] LABS: Hematocrit 36.9 % (37.0-47.0); Hemoglobin 12.7 g/dL (12.0-15.0); Mean Corpuscular HGB Conc 34.4 g/dl (32-36); Mean Corpuscular Hemoglobin 33.1 pg (26-34); Mean Corpuscular Volume 96.1 fl (80-100); Mean Platelet Volume 9.7 fl (7.4-10.4); Platelet Count Result 245 k/mm3 (150-375); Red Blood Count 3.84 M/mm3 (4.2-5.4); Red Cell Distribution Width 12.7 % (11.5-14.5); White Blood Count 2.8 K/mm3 (4.5-10.0)
[2024-10-06 08:09] LABS: Add Urine Microscopic? YES; Appearance Urine Clear (Clear); Bacteria Urine None Seen /hpf; Bilirubin Urine Negative (Negative); Blood Urine Negative (Negative); Color Urine Yellow (Yellow); Glucose Urine UA Negative (Negative); Ketones Urine Negative (Negative); Leukocyte Esterase Ur 1+ LEU/UL (Negative); Nitrate Urine Negative (Negative); Non Pathogenic Casts 0-2; Protein Urine Negative (Negative); RBC Urine 0-2 /hpf (0-2); Specific Grav Ur 1.006 (1.001-1.035); Squamous Epithelial Cell Urine Occasional /hpf (Few); Urobilinogen Urine 0.2 mg/dL (<2.0); pH Urine 7.5 (5.0-9.0)
[2024-10-06 08:19] LABS: Alanine Aminotransferase 34 U/L (6-35); Albumin Level 4.5 g/dL (3.5-5.1); Alkaline Phosphatase 65 U/L (38-126); Anion Gap 9 mmol/L (4-12); Aspartate Amino Transferase 38 U/L (14-36); Blood Urea Nitrogen 10 mg/dL (7-17); Calcium 9.4 mg/dL (8.4-10.2); Carbon Dioxide 28 mmol/L (22-30); Chloride 93 mmol/L (98-107); Cholesterol 186 mg/dL (0-200); Estimated Glomerular Filt Rate > 60; Glucose 89 mg/dL (65-110); HDL Direct 98 mg/dL; Potassium 4.1 mmol/L (3.4-5.0); Sodium 130 mmol/L (137-145); Triglycerides 65 mg/dL (<150)
[2024-10-06 08:30] LABS: LDL Cholesterol Direct 71 mg/dL
--- OUTSIDE RECORDS SUMMARY | 2024-10-07 21:12 | XMS_ITS | Clinical Summary ---
Author Organization [facility] Address [address] [address] Care Team Providers Care Nuclear Medicine Chief Technologist Name Role Phone Terrance Gipson MD Primary Care Provider [phone] Source Comments [facility],non-owned Affiliates and Associated Physician Practices is amultiple site organization consisting of ambulatory clinics and hospital sitesin [place], [place], [place]. This disclosure is being madepursuant to the Care Everywhere program and may not contain all information available regarding this patient. Last updated 18.[facility] Allergies No known active allergies Medications * Be aware that medications may not be up to date on this document. Alwaysverify current medications with the patient. Medication Sig Dispensed Refills Start Date End Date Status omeprazole (PRILOSEC) 40 MG capsule Take 40 mg by mouth daily before breakfast Active levothyroxine (SYNTHROID) TABS Take 12.5 mcg by mouth daily before breakfast Active Social History Tobacco Use Types Packs/Day Years Used Date Smoking Tobacco: Never Alcohol Use Standard Drinks/Week Comments No 0 (1 standard drink = 0.6 oz pur e alcohol) Sex and Gender Information Value Date Recorded Sex Assigned at Not on file Gender Identity Not on file Sexual Orientation Not on file Last Filed Vital Signs Vital Sign Reading Time Taken Comments Blood Pressure 119/75 06/04/2016 2:24 PM CDT Pulse 80 06/04/2016 2:24 PM CDT Temperature 36.7 ??C (98.1 ??F) 06/04/2016 2:24 PM CD T Respiratory Rate 20 06/04/2016 2:24 PM CDT Oxygen Saturation - - Inhaled Oxygen Concentration - - Weight 70.3 kg (155 lb) 06/04/2016 2:24 PM CDT Height 162.6 cm (5' 4 ) 06/04/2016 2:24 PM CDT Body Mass Index 26.61 06/04/2016 2:24 PM CDT Plan of Treatment Health Maintenance Due Date Last Done Comments BONE DENSITY TESTING 1957 COLOGUARD (AGES 45-75) - COL ON CA SCREENING 1957 COLON MONITORING 1957 COLONOSCOPY - COLON CA SCREENING 1957 CT COLONOGRAPHY - COLON CA SCREENING 1957 Colorectal Cancer Screening 1957 FIT - COLON CA SCREENING 1957 FLEX SIG - COLON CA SCREENING 1957 LIPID TESTING 1957 MAMMOGRAM 1957 HEPATITIS C SCREENING 10/24/1975 DTAP/TDAP/TD VACCINES (1 - Tdap) 1976 PNEUMOCOCCAL VACCINE 50+ (1 of 1 - PCV) 2007 ZOSTER VACCINE (1 of 2) 2007 COVID-19 VACCINE (1 - 2023-2 5 season) 2024 INFLUENZA VACCINE (#1) 2024 DEPRESSION SCREENING 09/15/2024 Respiratory Syncytial Virus (RSV) Vaccine Pt: or over 60 yrs (1 - 1-dose 75+ series) 2032 HEPATITIS B VACCINE Aged Out No longe r eligible based on patient's age to complete this topic HIB VACCINE Aged Out No longer eligi ble based on patient's age to complete this topic HPV VACCINE Aged Out No longer eligi ble based on patient's age to complete this topic MENINGOCOCCAL (Group B) VACCINE Aged Out No longer eligible based on patient's age to complete this topic MENINGOCOCCAL VACCINE Aged Out No riaz aravind eligible based on patient's age to complete this topic Care Teams Nuclear Medicine Chief Technologist Relationship Specialty Start Date End Date Terrance Gipson MD [address] [place] [address] PCP - General Family Medicine 12/28/13
--- OUTSIDE RECORDS SUMMARY | 2024-10-07 21:12 | XMS_ITS | Clinical Summary ---
Author Organization [facility] Care Team Providers Care Utility Sales Representative Name Role Phone Unavailable Primary Care Provider Unavailabl e Social History Tobacco Use Types Packs/Day Years Used Date Smoking Tobacco: Never Assessed Comments Unknown Sex and Gender Information Value Date Recorded Sex Assigned at Not on file Legal Sex Female 3:00 PM [employer] Gender Identity Not on file Sexual Orientation Not on file Plan of Treatment Health Maintenance Due Date Last Done Comments DEXA Bone Density 1955 Hepatitis C Virus (HCV) Screening 1957 TdaP Immunization 1957 Colonoscopy 2002 Colorectal Cancer Screening 2002 Cologuard 2007 Immunochemical Fecal Occult Blood 2007 Mammogram 2007 Pneumococcal Immunization (5 0+ years) (1 of 1 - PCV) 2007 Zoster Immunization (1 of 2) 2007 Influenza Immunization (#1) 2024 SARS-COV-2 Immunization ( - 2023-25 season) 2024 Respiratory Syncytial Virus (RSV) Immunization (Adult) (1 - 1-dose 75+ series) 2032 Hepatitis B Immunization Aged Out No longer eligible based on patient's age to complete this topic Meningococcal Immunization (ACWY) Aged Out No longer eligible based on patient's age to complete this topic Rotavirus Immunization Aged Out No lo nger eligible based on patient's age to complete this topic
--- OUTSIDE RECORDS SUMMARY | 2024-10-07 21:12 | XMS_ITS | Patient Health Summary ---
Author Organization [facility] Address [address] [place] [address] Care Team Providers Care Control Clerk Head Name Role Phone Terrance Gipson MD Primary Care Provider [phone] Note from [facility],non-owned Affiliates and Associated Physician Practices is amultiple site organization consisting of ambulatory clinics and hospital sitesin [place], [place], [place] and [place]. This disclosure is being madepursuant to the Care Everywhere program and may not contain all information available regarding this patient. Last updated 18.[facility] Allergies No known active allergies Medications * Be aware that medications may not be up to date on this document. Alwaysverify current medications with the patient. * omeprazole (PRILOSEC) 40 MG capsule Take 40 mg by mouth daily before breakfast * levothyroxine (SYNTHROID) TABS Take 12.5 mcg by mouth daily before breakfast Social History Tobacco Use Types Packs/Day Years [...] Mass Index 26.61 06/04/2016 2:24 PM CDT Procedures * STREP A SCREEN - POINT OF CARE (AMB) STL(Performed 06/04/2016) Performed for Acute maxillary sinusitis, recurrence not specified * XR RIBS RIGHT 2VW W PA CHEST(Performed 01/28/2014) Performed for Chest pain, unspecified * XR HAND BILAT 2VW(Performed 12/28/2013) Performed for Unspecified polyarthropathy or polyarthritis, site unspecified Results * STREP A SCREEN - POINT OF CARE (AMB) STL (06/04/2016 2:45 PM CDT) Strep A Rapid POCT Negative Negative Strep A Internal Control Absent Lot # [id number] Expiration Date Throat swab (specimen) ENTIRE THROAT (SURFACE REGION OF NECK) / Unknown 06/04/2016 2:45 PM CDT Praveena Colmenares BLOW MOLD OPERATOR-BOILER MAKER LAB - POINT OF CARE ORDERABLES * XR RIBS UNILATERAL RIGHT W PA CHEST (01/28/2014 4:49 PM CDT) Anatomical Region Laterality Modality Chest Radiographic Helene ging 01/28/2014 5:17 PM CDT Narrative 01/28/2014 5:18 PM CDT Multiple views of the right ribs INDICATION: Right-sided rib pain COMPARISON: None FINDING:Lungs are clear and cardio mediastinal silhouette is normal. Right ribs demonstrate no cortical irregularity or displaced fracture. Procedure Note Sina Gutierrez MD - 01/28/2014 Multiple views of the right ribs INDICATION: Right-sided rib pain COMPARISON: None FINDING:Lungs are clear and cardio mediastinal silhouette is normal. Right ribs demonstrate no cortical irregularity or displaced fracture. Steven June III, MD DIAGNOSTIC IMAGING O [facility] * XR HANDS BILATERAL 2 VIEWS (12/28/2013 11:01 AM CDT) Anatomical Region Laterality Modality Wrist / Hand, Upper Extremity Ra diographic Imaging 12/28/2013 11:0 2 AM CDT Impressions 12/28/2013 2:03 PM CDT Unremarkable study. Edited by Kelley Nichols on 12/28/2013 11:30 AM Narrative 12/28/2013 2:03 PM CDT BILATERAL HANDS. HISTORY: Polyarthritis. AP and lateral views of the left hand demonstrate well-maintained joint spaces. There is no fracture or dislocation or lytic or blastic lesion. AP and lateral views of the right hand demonstrate well-maintained joint spaces. There is no fracture or dislocation or lytic or blastic lesion. Procedure Note Afshin Ariza MD - 12/28/2013 BILATERAL HANDS. HISTORY: Polyarthritis. AP and lateral views of the left hand demonstrate well-maintained joint spaces. There is no fracture or dislocation or lytic or blastic lesion. AP and lateral views of the right hand demonstrate well-maintained joint spaces. There is no fracture or dislocation or lytic or blastic lesion. IMPRESSION Unremarkable study. Edited by Kelley Nichols on 12/28/2013 11:30 AM Steven June III, MD DIAGNOSTIC IMAGING O [facility] Care Teams Control Clerk Head Relationship Specialty Start Date End Date Terrance Gipson MD [address] [place] [address] PCP - General Family Medicine 12/28/13
--- OUTSIDE RECORDS SUMMARY | 2024-10-07 21:12 | XMS_ITS | Referral Summary ---
Author Organization [facility] Address [address] [place] [address] Care Team Providers Care Mender Hand Name Role Phone Terrance Gipson MD Primary Care Provider [phone] Source Comments [facility],non-owned Affiliates and Associated Physician Practices is amultiple site organization consisting of ambulatory clinics and hospital sitesin [place], [place], [place] and [place]. This disclosure is being madepursuant to the Care Everywhere program and may not contain all information available regarding this patient. Last updated 18.[facility] Allergies No known active allergies Medications * [...] 06/04/2016 2:24 PM CDT Plan of Treatment Not on file Care Teams Mender Hand Relationship Specialty Start Date End Date Terrance Gipson MD [address] [place] [address] PCP - General Family Medicine 12/28/13
--- OUTSIDE RECORDS SUMMARY | 2024-10-07 21:12 | XMS_ITS | Referral Summary ---
Author Organization [facility] [address] Address [address] [place] [address] Care Team Providers Care Assembly Line Worker Name Role Phone Terrance Gipson MD Primary Care Provider Allergies No known active allergies Medications hydroCHLOROthia zide (HYDRODIURIL) 12.5 mg tablet TK 1 T PO QAM 0 Active levothyroxine (SYNTHROID) 75 mcg tablet TK 1 T PO D 0 Active omeprazole (PriLOSEC) 40 mg capsule Take 40 mg by mouth daily before breakfast Active aspirin 81 mg enteric coated tablet Take 81 mg by mouth daily Active clobetasoL (TEMOVATE) 0.05 % creamIndication s:Vulvar dystrophy Once daily 30 g 1 1 Active Active Problems Problem Noted Date Diagnosed Date Hypothyroidism 12/28/2013 Overview (12/18/2016): Hypothyroidism Social History Tobacco Use Types Packs/Day Years Used Date Smoking Tobacco: Never Alcohol Use Standard Drinks/Week Comments Yes 0 (1 standard drink = 0.6 oz pur e alcohol) Comments No Sex and Gender Information Value Date Recorded Sex Assigned at Not on file Legal Sex Female 12:51 AM DIAMOND POWDER MIXER Gender Identity Not on file Sexual Orientation Not on file Last Filed Vital Signs Vital Sign Reading Time Taken Comments Blood Pressure 128/82 09/05/2021 9:53 AM DIAMOND POWDER MIXER Pulse 82 08/18/2019 11:30 AM DIAMOND POWDER MIXER Temperature 36.6 ??C (97.9 ??F) 08/18/2019 11:[address] Respiratory Rate - - Oxygen Saturation 98% 08/18/2019 11:30 AM DIAMOND POWDER MIXER Inhaled Oxygen Concentration - - Weight 76.7 kg (169 lb) 09/05/2021 9:53 AM DIAMOND POWDER MIXER Height 163.8 cm (5' 4.49 ) 09/05/2021 9:53 AM CS T Body Mass Index 28.57 09/05/2021 9:53 AM DIAMOND POWDER MIXER Plan of Treatment Not on file Procedures Procedure Name Priority Date/Time Associated Diagnosis Comments SCREENING MAMMOGRAM BILATERAL W ENDER Schedule Routine, Read Routine (OP Routine) 02/04/2024 2:53 PM CDT Screening mammogram, encounter for THINPREP PAP WITH HPV Routine 09/05/2021 9:49 AM DIAMOND POWDER MIXER from Last 3 Months or Most Recently Relevant to Health Maintenance Results * Screening Mammogram Bilateral W Ender (02/04/2024 2:53 PM CDT) Anatomical Region Laterality Modality Breast Bilateral Mammography Impressions 02/04/2024 3:51 PM CDT BI-RADS?? ATLAS category (overall): 1 - Negative There is no mammographic evidence of malignancy. A 1 year screening mammogram is recommended. The patient has been or will be contacted. We recommend annual screening mammography for women at average risk of breast cancer beginning at age 40, based on guidelines of the [employer] (ACR Practice Parameter for the Performance of Screening and Diagnostic Mammography) and [employer]. For women with and elevated risk of breast cancer, please refer to the ACR Practice Parameter for specific screening recommendations. The patient will be entered into a reminder system with a target due date of 1 year for her next screening exam. Narrative 02/04/2024 3:51 PM CDT Screening Mammogram Bilateral W Ender: 02/04/24 The study was acquired using full field digital technology and interpreted from soft copy. 2D digital mammographic views, as well as 3D digital tomosynthesis were performed in the CC and MLO projections. CLINICAL: ??Screening mammogram, encounter for. ??No relevant medical history has been documented for this patient. ??History of breast cancer in Mother, Sister, Paternal Grandmother. COMPARISONS: 12/10/2022 Screening Mammogram Bilateral W Ender 09/13/2021 Screening Mammogram Bilateral W Ender 05/25/2020 Screening Mammogram 2D Bilateral 04/19/2019 Screening Mammogram 2D Bilateral 04/02/2018 Screening Mammogram 2D Bilateral 03/28/2017 Screening Mammogram 2D Bilateral BREAST TISSUE: The breasts are extremely dense, which lowers the sensitivity of mammography. FINDINGS: There are benign calcifications in both breasts.No suspicious masses, suspicious calcifications, or other suspicious findings are seen within either breast. There has been no suspicious change. us Self Screening Mammogram IMG MAMMO PROCEDURES Fi nal Result * ThinPrep Pap with HPV (09/05/2021 9:49 AM DIAMOND POWDER MIXER) Pap test 09/05/2021 9:49 AM DIAMOND POWDER MIXER 09/06/2021 9:49 AM DIAMOND POWDER MIXER Narrative 09/11/2021 2:13 PM DIAMOND POWDER MIXER [facility] Department of Pathology [address] [place], [place] [id number] Final Report with Addendum Note to Patients: This report may contain a detailed description of human tissue sent by a health care provider to the laboratory for pathologic evaluation. The content of this report is essential for diagnosis and may provide important critical findings. This information may be unfamiliar to patients to review without a medical professional present. It is advised that the patient review this report in the presence of a health care provider who can answer questions and explain the details. Patient Name: ??JIHAN WASHINGTON Address: ??[address] , ?? [place], [place] [address] Gender: ??F : ??1955 (Age: 65) Service: ??Laboratory Location: ?? Hospital #: ??[id number] Patient Type: ??[facility] SPECIMEN Taken: ??09/05/2021 Received: ??09/06/2021 Accessioned:: ??09/10/2021 Reported: ??09/11/2021 Physician(s): Martni Lara M.D. [facility] Diagnosis: Source of Specimen: ? Imaged Thinprep Pap Test plus HPV - Electrical Checkout Mechanic Cytologic Material Specimen Adequacy: ?- Specimen satisfactory for evaluation (vaginal pap) General Category: ?- Negative for intraepithelial lesion or malignancy ?? DANIEL Lynn(ASCP) Report Electronically Reviewed and Signed Out By ??DANIEL Lynn(ASCP) ??09/11/2021 14:13:29 ??Addenda: HPV Test Interpretation NEGATIVE for types 16, 18, 31, 33, 35, 39, 45, 51, 52, 56, 58, 59, 66 and 68. Test performed utilizing Gen-Etaoshi Aptima assay. ?? DANIEL Lynn(ASCP) ??Report Electronically Reviewed and Signed Out By ??DANIEL Lynn(ASCP) ??09/10/2021 14:51:48 ? Specimen(s) Received: A: Imaged Thinprep Pap Test plus HPV - Electrical Checkout Mechanic Cytologic Material Clinical History: Menstrual History: Hysterectomy The Pap test is a screening test used to aid in the detection of cervical cancer and its precursors. ??It should not be the sole means by which malignant and premalignant lesions are diagnosed. ??Both false negative and false positive results may occur. ?? It also has poor sensitivity for the detection of endometrial lesions and should not be used to evaluate suspected endometrial abnormalities. ??For these reasons it is most important to obtain Pap tests at regular intervals. The performance characteristics of some immunohistochemical stains, fluorescence in-situ hybridization tests and immunophenotyping by flow cytometry cited in this report (if any) were determined by the Surgical Pathology Department at [facility] as part of an ongoing quality assurance engineer program and in compliance with federally mandated regulations drawn from the Clinical Laboratory Improvement Act of 1988 (CLIA '88). ??Some of these tests rely on the use of analyte specific reagents and are subject to specific labeling requirements by the US Food and Drug Administration. ??Such diagnostic tests may only be performed in a facility that is certified by the Department of Health and Human Services as a high complexity laboratory under CLIA '88. The FDA has determined that such clearance or approval is not necessary. ??This test is used for clinical purposes. ??It should not be regarded as investigational or for research. ??Nevertheless, federal rules concerning the medical use of analyte specific reagents require that the following disclaimer be attached to the report: This test was developed and its performance characteristics determined by the Surgical Pathology Department [facility]. ??It has not been cleared or approved by the U. S. Food and Drug Administration. Martin Lara MD LAB CYTOLOGY ORDERABLES Final Result from Last 3 Months or Most Recently Relevant to Health Maintenance [place] [place] [address] [place] [address] [place] [address] MEDICARE [facility] Address: [facility] [address] [place] [address] Care Teams Assembly Line Worker Relationship Specialty Start Date End Date Terrance Gipson MD [address] [facility] [address] [place] [id number] PCP - General 01/28/14
--- OUTSIDE RECORDS SUMMARY | 2024-10-07 21:12 | XMS_ITS | Clinical Summary ---
Author Organization [facility] Address [address] [place] [address]. [place], [place] [id number] [place] [id number] Care Team Providers Care Passenger Agent Name Role Phone Unavailable Primary Care Provider Unavailabl e Social History Tobacco Use Types Packs/Day Years Used Date Smoking Tobacco: Never Assessed Comments Unknown Sex and Gender Information Value Date Recorded Sex Assigned at Not on file Legal Sex Female 8:05 PM CDT Gender Identity Not on file Sexual Orientation Not on file Last Filed Vital Signs Vital Sign Reading Time Taken Comments Blood Pressure 120/64 06/02/2015 12:45 PM CDT Pulse 88 06/02/2015 12:45 PM CDT Temperature - - Respiratory Rate - - Oxygen Saturation - - Inhaled Oxygen Concentration - - Weight 69.4 kg (153 lb) 06/02/2015 12:45 PM CDT Height 162.6 cm (5' 4 ) 06/02/2015 12:45 PM CDT Body Mass Index 26.26 06/02/2015 12:45 PM CDT Plan of Treatment Health Maintenance Due Date Last Done Comments Colorectal Cancer Screening Colonoscopy (10 Years) 1955 Hepatitis C 1975 DTaP, Tdap and Td Vaccines ( 1 - Tdap) 1976 Mammogram Screening 1997 Zoster Vaccines (1 of 2) 2007 Dexa Scan (General) 2022 Pneumococcal Vaccine: 65+ Ye ars (1 of 1 - PCV) 2022 COVID-19 Vaccine ( - 2023-2 5 season) 2024 Influenza Adult (#1) 2024 RSV Immunization or 60+ Years (1 - 1-dose 75+ series) 2032 Meningococcal Vaccine Aged Out No riaz aravind eligible based on patient's age to complete this topic RSV Immunizations Under 20 Months Aged Out No longer eligible based on patient's age to complete this topic
--- OUTSIDE RECORDS SUMMARY | 2024-10-07 21:12 | XMS_ITS | Clinical Summary ---
Author Organization [facility] [address] Address [address] [place] [address] Care Team Providers Care Flooring Mechanic Name Role Phone Terrance Gipson MD Primary [...] Diagnosed Date Hypothyroidism 12/28/2013 Overview (12/18/2016): Hypothyroidism Surgical History Surgery Date Site/Laterality Comments SECTION section HYSTERECTOMY Hysterectomy BREAST LUMPECTOMY ELBOW SURGERY CARPAL TUNNEL RELEASE Right BREAST BIOPSY Medical History Medical History Date Comments HTN (hypertension) Thyroid dysfunction Acid reflux Family History Medical History Relation Name Comments Breast cancer Mother Breast cancer Paternal Grandmother a t 56 maybe from breast cancer, patient not sure Rheum arthritis Sister 1 Thyroid disease Sister 1 Hypothyroidism Sister 2 Thyroid disease Sister 2 Breast cancer Sister 3 maybe 55 but p atient is really not sure Thyroid disease Sister 3 Relation Name Status Comments Mother Paternal Grandmother (Age 56) di ed from breast cancer the patient thinks Sister 1 Sister 2 Sister 3 Social History Tobacco Use Types Packs/Day Years Used Date Smoking Tobacco: Never Alcohol Use Standard Drinks/Week Comments Yes 0 (1 standard drink = 0.6 oz pur e alcohol) Comments No Sex and Gender Information Value Date Recorded Sex Assigned at Not on file Legal Sex Female 12:51 AM SOFTWARE ENGINEER WEB APPLICATIONS Gender Identity Not on file Sexual Orientation Not on file Obstetrics History Para Term AB IAB SAB Ectopic Multiple Livin g Live Births 1 1 1 Date Outcome GA Total Labor Labor//3rd Weight Sex Type Anes PTL Coty A1 A5 Name Clin Term Comments 07/13 Lifetime risk 39.9% Last Filed Vital Signs Vital Sign Reading Time Taken Comments Blood Pressure 128/82 09/05/2021 9:53 AM SOFTWARE ENGINEER WEB APPLICATIONS Pulse 82 08/18/2019 11:30 AM SOFTWARE ENGINEER WEB APPLICATIONS Temperature 36.6 ??C (97.9 ??F) 08/18/2019 11:[address] Respiratory Rate - - Oxygen Saturation 98% 08/18/2019 11:30 AM SOFTWARE ENGINEER WEB APPLICATIONS Inhaled Oxygen Concentration - - Weight 76.7 kg (169 lb) 09/05/2021 9:53 AM SOFTWARE ENGINEER WEB APPLICATIONS Height 163.8 cm (5' 4.49 ) 09/05/2021 9:53 AM CS T Body Mass Index 28.57 09/05/2021 9:53 AM SOFTWARE ENGINEER WEB APPLICATIONS Plan of Treatment Health Maintenance Due Date Last Done Comments Colon Cancer Screening-Colonoscopy 1955 Depression Screening 1955 Fall Risk Assessment 1955 Hepatitis C Screening 1955 Osteoporosis Screening-Bone Density Scan 1955 DTaP/Tdap/Td Vaccine (1 - Tdap) 1968 Hepatitis B Screening 1975 Zoster Vaccine (1 of 2) 2007 Pneumococcal vaccine 65+ (1 of 1 - PCV) 2022 Well Visit 65+ 2022 09/05/2021 Influenza Vaccine (#1) 2024 Breast Cancer Screening-Mammogram 02/03/2025 02/04/2024, 12/10/2022, 09/13/2021, Additional history exists Cervical Cancer Screening Discontinued 09/05/2021 Procedures Procedure Name Priority Date/Time Associated Diagnosis Comments SCREENING MAMMOGRAM BILATERAL W ENDER Schedule Routine, Read Routine (OP Routine) 02/04/2024 2:53 PM CDT Screening mammogram, encounter for THINPREP PAP WITH HPV Routine 09/05/2021 9:49 AM SOFTWARE ENGINEER WEB APPLICATIONS from Last 3 Months or Most Recently [...] age 40, based on guidelines of the [place] [employer] (ACR Practice Parameter for the Performance of Screening and Diagnostic Mammography) and [place] [employer]. For women with and elevated risk of breast cancer, please refer to the ACR Practice Parameter for specific screening recommendations. The patient will be entered into a reminder system with a target due date of 1 year for her next screening exam. Narrative 02/04/2024 3:51 PM CDT Screening Mammogram Bilateral W Enedr: 02/04/24 The study was acquired using full [...] ThinPrep Pap with HPV (09/05/2021 9:49 AM SOFTWARE ENGINEER WEB APPLICATIONS) Pap test 09/05/2021 9:49 AM SOFTWARE ENGINEER WEB APPLICATIONS 09/06/2021 9:49 AM SOFTWARE ENGINEER WEB APPLICATIONS Narrative 09/11/2021 2:13 PM SOFTWARE ENGINEER WEB APPLICATIONS [facility] Department of Pathology [address] [place] [address] Final Report with Addendum Note to Patients: [...] details. Patient Name: ??JIHAN WASHINGTON Address: ??[address] [facility], ?? [place], [place] [address] Gender: ??F : ??1955 (Age: 65) Service: ??Laboratory Location: ?? Hospital #: ??[id number] Patient Type: ??[facility] SPECIMEN Taken: ??09/05/2021 Received: ??09/06/2021 Accessioned:: ??09/10/2021 Reported: ??09/11/2021 Physician(s): Martin Lara M.D. [facility] Diagnosis: Source of Specimen: ? Imaged Thinprep Pap Test plus HPV - Bale Coverer Cytologic Material Specimen Adequacy: ?- Specimen satisfactory for evaluation (vaginal pap) General Category: ?- Negative for intraepithelial lesion or malignancy ?? DANIEL Lynn(ASCP) Report Electronically Reviewed and Signed Out By ??DANIEL Lynn(ASCP) ??09/11/2021 14:13:29 ??Addenda: HPV Test Interpretation NEGATIVE for types 16, 18, 31, 33, 35, 39, 45, 51, 52, 56, 58, 59, 66 and 68. Test performed utilizing Gen-Probe Aptima assay. ?? DANIEL Lynn(ASCP) ??Report Electronically Reviewed and Signed Out By ??DANIEL Lynn(ASCP) ??09/10/2021 14:51:48 ? Specimen(s) Received: A: Imaged Thinprep Pap Test plus HPV - Bale Coverer Cytologic Material Clinical History: Menstrual History: Hysterectomy [...] determined by the Surgical Pathology Department at [facility] as part of an ongoing quality technician program and in compliance with federally mandated [...] characteristics determined by the Surgical Pathology Department [facility]. ??It has not been cleared or approved by the U. S. Food and Drug Administration. Martin Lara MD LAB CYTOLOGY ORDERABLES Final Result from Last 3 Months or Most Recently Relevant to Health Maintenance Insurance [place] [employer] [place] MEDICARE SOLUT[place] Care Teams Flooring Mechanic Relationship Specialty Start Date End Date Terrance Gipson MD [address] [place] [address] PCP - General 01/28/14
== END 2024-10-06 07:03 | disposition home or self-care (01) ==
PROVIDERS: PCP Family Medicine; Visit Provider Physician Assistant
DX: E03.9 Hypothyroidism, unspecified (principal); Z00.00 Encounter for general adult medical examination without abnormal findings; I10 Essential (primary) hypertension; K75.81 Nonalcoholic steatohepatitis (NASH); M35.00 Sjogren syndrome, unspecified
CPT/HCPCS: 36415; 80053; 80061; 81001; 84443; 85027

== ENCOUNTER 2024-10-14 17:07 | Emergency (ER) | payer MEDICARE, SELFPAY ==
--- NOTE | 2024-10-14 17:09 | ED_ITS ---
HPI - Eye Problem General Chief complaint: Eye Problems Stated complaint: left eye red Time Seen by Provider: 10/14/24 17:08 Source: patient Mode of arrival: ambulatory Limitations: no limitations History of Present Illness HPI Narrative: Patient is a 68-year-old female presents with left eye itchiness, redness and drainage. Patient states she woke up this morning with it matted shut. Patient has also been exposed to COVID in and is having right-sided congestion and right-sided sore throat. Denies any fever, chills, nausea, vomiting, diarrhea. Related Data Home Medications ?Medication ?Instructions ?Recorded ?Confirmed ?Last Taken ?Type ascorbic acid (vitamin C) 1,000 mg 1 g PO DAILY 07/12/24 10/14/24 07/15/24 History capsule cholecalciferol (vitamin D3) 25 25 mcg PO DAILY 07/12/24 10/14/24 07/15/24 History mcg (1,000 unit) capsule hydrochlorothiazide 25 mg tablet 25 mg PO QAM 07/12/24 10/14/24 07/19/24 History levothyroxine 100 mcg tablet 100 mcg PO QAM 07/12/24 10/14/24 07/20/24 History meloxicam 15 mg tablet 15 mg PO DAILY PRN Pain 07/12/24 10/14/24 1 Month Ago History ~06/19/24 zinc 50 mg capsule 50 mg PO DAILY 07/12/24 10/14/24 07/15/24 History Allergies Allergy/AdvReac Type Severity Reaction Status Date / Time No Known Allergies Allergy Verified 10/14/24 17:10 Review of Systems Review of Systems: All systems reviewed & are unremarkable except as noted in HPI and below Constitutional: Constitutional: Denies body ache(s), Denies fever(s), Denies headache(s), Denies malaise and Denies weakness Eyes: Eyes: Denies blurry vision, Reports eye discharge, Reports irritation, Reports itchy eyes, Denies loss of vision and Denies eye pain ENT: Denies otalgia, Denies headache(s), Reports nasal congestion, Denies nasal discharge, Denies sinus pain and Reports sore throat Cardiovascular: Cardiovascular: Denies chest pain, Denies irregular heart rhythm and Denies dyspnea Respiratory: Respiratory: Denies dyspnea Gastrointestinal: Gastrointestinal: Denies abdominal pain, Denies diarrhea, Denies nausea and Denies vomiting Musculoskeletal: Musculoskeletal: Denies back pain, Denies myalgias and Denies arthralgias Integumentary/Breasts: Skin/Breast: Denies pruritus and Denies rash Neurologic: Denies headache(s), Denies loss of vision and Denies weakness Psychiatric: Psychiatric: Reports no additional psychiatric complaints Allergic/Immunologic: Allergic/Immunologic: Reports itchy eyes PMFSH Past Medical History Medical History Fracture of 5th metatarsal Medial meniscus tear Knee pain Chondromalacia Right knee DJD Degenerative joint disease of cervical spine Overweight Sicca syndrome Inflammatory arthritis SS-A antibody positive Rheumatoid factor positive ZENOBIA positive (~2013) Bilateral lower extremity edema Bilateral hand swelling Essential (primary) hypertension Atypical chest pain Gastro-esophageal reflux disease without esophagitis Hypothyroidism, unspecified Surgical History Surgical History H/O elbow surgery H/O: hysterectomy Family History Family History Mother Hypertension Family history of diabetes mellitus in first degree relative Family history of coronary artery disease Family history of malignant neoplasm of breast in first degree relative Other Malignant neoplasm of prostate Social History Social History Smoking packs per day: 0 Smoking cigarettes per day: 0.0 Years smoked: 15 Smoking pack-years: 0.00 Smoking status: Former smoker Tobacco type: cigarettes Second hand tobacco smoke exposure: No Smoking end date: 07/16/19 Alcohol intake: current Drinks per week: 42 Substance use: never Substance use type: does not use Living arrangements: with family Additional living arrangements comments: [facility] Occupation/Education: retired Gender identity (if verbalized by the patient): Female Spiritual care concerns: No Comments At time of signature, agree with nursing past medical, surgical, social and family history. There is no relevant family history pertinent to the presenting complaint. Exam Const: General: cooperative, healthy appearing, comfortable, no acute distress and well nourished Nutritional Appearance: well nourished Orientation/consciousness: patient oriented x3 Limitations: no limitations HENMT: Head: normal to inspection, normocephalic and atraumatic Ears: external ears normal Face/Nose/Sinus: Normal external nose present, normal facial exam and face symmetric Face and sinus: normal facial exam and face symmetric Mouth: Yes lip normal Eyes: General: appearance normal, both eyes and all related structures Visual Davis: normal visual davis by confrontation Alignment and Position: alignment normal and position normal Periorbital: periorbital findings normal Eyelids: eyelids normal Conjunctivae: conjunctival abnormality right conjunctival injection diffuse Sclera: scleral abnormality right scleral injection diffuse Pupils: Equal, round and reactive pupils present EOM: EOMs intact bilaterally Direct Ophthalmoscopy: no photophobia Other: No hyphema, no foreign body under the lids. Neck: Neck: normal visual inspection, full ROM, no lymphadenopathy and no meningeal signs Chest: Chest palpation & inspection: normal inspection of the chest Resp: Effort & Inspection: normal respiratory effort and able to speak in co mplete sentences Auscultation: clear to auscultation bilaterally Cardio: Rate: regular rate Rhythm: regular rhythm Heart sounds: S1 normal heart sound present and S2 normal heart sound present GI: Inspection: normal to inspection Skin: General skin exam: normal color and no rashes or lesions noted Neuro: General: patient oriented x3, moves all extremities and no meningeal signs Cranial nerves: Yes Equal, round and reactive pupils present Speech: normal speech Gait exam (Neuro): Normal gait present Extrem: General: normal to inspection, full ROM and no edema Psych: Appearance: grossly normal and well kempt Mental Status: mental status grossly normal Speech and movement: Normal speech and movement present Affect: normal affect Attitude: cooperative Thought process: Normal thought process present Course Course Emergency Course: Patient is aware of diagnosis, understands and agrees to treatment plan. Anticipatory guidance given. Patient agrees to follow-up as directed and is aware of reasons to seek care at the emergency department. Portions of this record may have been created with voice recognition software Level of Care: Express Care Visit Vital Signs Vital signs: Vital Signs Temperature 36.4 C 10/14/24 17:17 Pulse Rate 68 10/14/24 17:17 Respiratory Rate 16 10/14/24 17:17 Blood Pressure 154/75 H 10/14/24 17:17 Pulse Oximetry 100 10/14/24 17:17 Oxygen Delivery Room Air 10/14/24 17:17 Temperature 36.4 C 10/14/24 17:17 Pulse Rate 68 10/14/24 17:17 Respiratory Rate 16 10/14/24 17:17 Blood Pressure 154/75 H 10/14/24 17:17 Pulse Oximetry 100 10/14/24 17:17 Oxygen Delivery Room Air 10/14/24 17:17 Reviewed MDM - Eye Problem MDM Narrative Medical decision making narrative: Pt well hydrated appearing, in no respiratory distress, hemodynamically stable. Recommend supportive care. The patient is stable at time of discharge the clinical impression was discussed and the patient was given the opportunity to ask questions, which were addressed as completely as possible given the information available at present. Anticipatory guidance and return to care precautions were discussed and the importance of primary care follow-up was stressed and encouraged. The patient voiced understanding of the plan, indications to return, and the need for follow-up. Exam findings show no acute concerns or changes Patient is appropriate for outpatient treatment and follow-up. Differential Diagnosis Differential diagnosis: Likely corneal abrasion, conjunctivitis, periorbital cellulitis and corneal ulcer Medical Records Attestation: I reviewed the patient's medical records. Lab Data Attestation: I reviewed the patient's lab results. Labs: Lab Results 10/14/24 Range/Units 18:23 POC SARS CoV-2 Ag Negative (Negative) Discharge Plan Discharge Clinical Impression: Conjunctivitis Qualifiers: Conjunctivitis type: acute Acute conjunctivitis type: bacterial Laterality: left Qualified Code(s): H10.32 - Unspecified acute conjunctivitis, left eye Patient Disposition: Home, Self-Care Condition: Stable Instructions: Conjunctivitis (ED) Additional Instructions: Your COVID was negative. Do not touch or rub your eye. Use a warm or cool washcloth on your eye for comfort Use eyedrops as directed Practice good handwashing and hygiene to prevent spread of infection You may take Tylenol or ibuprofen for pain Follow-up with PCP or certified veterinary technician if condition is not improving in 2-3days. Go to the emergency room if you have pain behind your eye, pressure behind her eye, difficulty seeing, or other severe symptoms Patient Language: Sudanese Prescriptions: New ofloxacin 0.3 % drops See Rx Instructions .ROUTE .COMPLEX Qty: 15 0RF Rx Instructions: put 1-2 drps into left eye every 2-4 h x 2 days, then 1-2 drps 4 times/day days 3-7 fluticasone propionate [Flonase Allergy Relief] 50 mcg/actuation spray,suspension 1 spray intranasal DAILY Qty: 16 0RF Rx Instructions: administer into each nostril No Action omeprazole 20 mg capsule,delayed release(DR/EC) 20 mg PO DAILY Qty: 90 3RF cholecalciferol (vitamin D3) 25 mcg (1,000 unit) Capsule 25 mcg PO DAILY zinc 50 mg Capsule 50 mg PO DAILY ascorbic acid (vitamin C) 1,000 mg Capsule 1 g PO DAILY meloxicam 15 mg tablet 15 mg PO DAILY PRN (Reason: Pain) Rx Instructions: TAKE 1 TABLET BY MOUTH DAILY NEEDED FOR NECK PAIN levothyroxine 100 mcg tablet 100 mcg PO QAM hydrochlorothiazide 25 mg tablet 25 mg PO QAM Rx Instructions: TAKE 1 TABLET BY MOUTH DAILY Follow-up/Referrals: Terrance Gipson MD [Primary Care Provider] - 3 Days Stand Alone Forms: Work/School Release IP Time of Disposition: 18:23
[2024-10-14 17:17] VITALS: BP 154/75; PULSE 68; RESP 16; TEMP 36.4; O2SAT 100
[2024-10-14 18:25] LABS: EDCOVIDSCREEN Negative (Negative)
== END 2024-10-14 18:29 | disposition home or self-care (01) ==
PROVIDERS: Emergency Provider Nurse Practitioner Family; PCP Family Medicine
DX: H10.32 Unspecified acute conjunctivitis, left eye (principal); Z20.822 Contact with and (suspected) exposure to COVID-19; Z87.891 Personal history of nicotine dependence; I10 Essential (primary) hypertension; K21.9 Gastro-esophageal reflux disease without esophagitis; E03.9 Hypothyroidism, unspecified; M17.11 Unilateral primary osteoarthritis, right knee; M47.812 Spondylosis without myelopathy or radiculopathy, cervical region; M35.00 Sjogren syndrome, unspecified
CPT/HCPCS: 87426; 99213; G0463

== ENCOUNTER 2025-02-15 11:19 | Outpatient (CLI) | payer MEDICARE, SELFPAY ==
--- NOTE | 2025-02-15 11:25 | CY_PTH ---
PATIENT: Jihan Rosario LOC: [facility] #:[id number] AGE/SX: 69/F ROOM: RE02/15/[address]: Curtis Milton MD : 1955 BED: DIS: 02/15/2025 SPEC #: [id number] RECD: 02/16/25 07:00 STATUS: ANJEL REQ #: [id number] ADAMA: 02/15/25 11:[address]: Curtis Milton DEPT: [facility] Cytology RECD BY: Mel Weaver ENTERED: 02/16/25 07:00 SP TYPE: Cytology OTHR DR: Terrance Gipson MD Tissues: A - Flow Procedures: Flow Cytometry
--- OUTSIDE RECORDS SUMMARY | 2025-02-15 11:30 | XMS_ITS | Clinical Summary ---
Author Organization [facility] Haley ayoub Olegclaire Address [address] [place] [address] Care Team Providers Care Data Base Design Analyst Name Role Phone Unavailable Primary Care Provider Unavailabl e Allergies No known active allergies Medications omeprazole (PriLOSEC) 40 mg Capsule, Delayed Release(E.C.) Take 40 mg by mouth daily before breakfast. Active levothyroxine 100 mcg tablet Take 100 mcg by mouth daily in the morning. 12/17/2024 Active hydroCHLOROthiaz althea 25 mg tablet Take 25 mg by mouth daily. 12/17/2024 Active ascorbic acid, vitamin C, (Vitamin C) 1,000 mg Tablet Take 1,000 mg by mouth daily. Active Ca comb no.1/vit D3/B6/FA/B12 (VITAMIN D3, CALCIUM CIT-PHOS, ORAL) Take by mouth daily. Active zinc GLUCONATE 50 mg Tablet Take 50 mg by mouth daily. Active Active Problems No known active problems Encounters Date Type Department Care Team Description 02/15/2025 10:30 AM CDT Office Visit [facility] Oncology and Hematology - [facility] [address] [facility] [address] [place] [address] Curtis Milton MD Neutropenia, unspecified type (Primary Dx); Chronic anemia from Last 3 Months Family History Medical History Relation Name Comments Diabetes Brother 1 Esophageal Cancer Brother 1 Heart Disease Brother 2 Prostate Cancer Brother 3 No Known Problems Brother 4 Diabetes Brother 5 neck cancer Brother 5 No Known Problems Child Prostate Cancer Father Breast Cancer Mother Diabetes Mother Heart Disease Mother Breast Cancer Sister 1 No Known Problems Sister 2 Ovarian Cancer Sister 3 Relation Name Status Comments Brother 1 Brother 2 Alive Brother 3 Alive Brother 4 Brother 5 Alive Child Alive Father Mother Sister 1 Alive Sister 2 Alive Sister 3 Alive Social History Tobacco Use Types Packs/Day Years Used Date Smoking Tobacco: Never Smokeless Tobacco: Never Alcohol Use Standard Drinks/Week Comments Yes 2 (1 standard drink = 0.6 oz pur e alcohol) everyday Comments Unknown Sex and Gender Information Value Date Recorded Sex Assigned at Not on file 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 Gender Identity Not on file Sexual Orientation Not on file Last Filed Vital Signs Vital Sign Reading Time Taken Comments Blood Pressure 137/81 02/15/2025 10:36 AM CDT Pulse 75 02/15/2025 10:36 AM CDT Temperature 36.8 C (98.3 F) 02/15/2025 10:36 AM CDT Respiratory Rate 15 02/15/2025 10:36 AM CDT Oxygen Saturation 96% 02/15/2025 10:36 AM CDT Inhaled Oxygen Concentration - - Weight 78.2 kg (172 lb 6.4 oz) 02/15/2025 10:36 AM CDT Height 162.6 cm (5' 4) 02/15/2025 10:36 AM CDT Body Mass Index 29.59 02/15/2025 10:36 AM CDT Plan of Treatment Upcoming Encounters Date Type Department Care Team (Late st Contact Info) Description 03/01/2025 4:30 PM CDT Telephone Check Up [facility] Oncology and Hematology - [address] [facility] [address] [place] [address] Curtis Milton MD [address] [place] [address] Health Maintenance Due Date Last Done Comments DTAP/TDAP/TD VACCINES (1 - Tdap) 1976 COLORECTAL SCREENING 2002 Colorectal Cancer Screening 2002 FIT-DNA Q 3 years 2002 FIT/FOBT Q 1 year 2002 Flex Sig/CT Colonography Q 5 years 2002 PNEUMOCOCCAL VACCINE 50+ YEA RS (1 of 1 - PCV) 2007 ZOSTER VACCINE (1 of 2) 2007 OSTEOPOROSIS SCREENING 2022 INFLUENZA VACCINE (#1) 2024 Medicare [place] ([place]) Preventative Visit/Annual Wellness Visit 09/15/2024 09/05/2021 BREAST CANCER SCREENING 02/03/2025 02/04/20 24, 02/04/2024, 12/10/2022, Additional history exists RSV VACCINE (60+ or ) (1 - 1-dose 75+ series) 2032 Insurance [facility] [address] [place] [address]
--- OUTSIDE RECORDS SUMMARY | 2025-02-15 11:30 | XMS_ITS | Clinical Summary ---
Author Organization [facility] [address] Address [address] [place] [address] Care Team Providers Care Jeeper Operator Name Role Phone Terrance Gipson MD Primary [...] on file Legal Sex Female 12:51 AM FOREST TECHNICIAN Gender Identity Not on file Sexual Orientation Not on file Obstetrics History Para Term AB IAB SAB Ectopic Multiple Livin g Live Births 1 1 1 Date Outcome GA Total Labor Labor/2nd/3rd Weight Sex Type Anes PTL Ctoy A1 A5 Name Clin Term Comments 07/13 Lifetime risk 39.9% Last Filed Vital Signs Vital Sign Reading Time Taken Comments Blood Pressure 128/82 09/05/2021 9:53 AM FOREST TECHNICIAN Pulse 82 08/18/2019 11:30 AM FOREST TECHNICIAN Temperature 36.6 C (97.9 F) 08/18/2019 11:30 AM FOREST TECHNICIAN Respiratory Rate - - Oxygen Saturation 98% 08/18/2019 11:30 AM FOREST TECHNICIAN Inhaled Oxygen Concentration - - Weight 76.7 kg (169 lb) 09/05/2021 9:53 AM FOREST TECHNICIAN Height 163.8 cm (5' 4.49) 09/05/2021 9:53 AM CS T Body Mass Index 28.57 09/05/2021 9:53 AM FOREST TECHNICIAN Plan of Treatment Health Maintenance Due Date Last Done Comments Colon Cancer Screening-Colonoscopy 1955 Depression Screening 1955 Fall Risk Assessment 1955 Hepatitis C Screening 1955 Osteoporosis Screening-Bone Density Scan 1955 DTaP/Tdap/Td Vaccine (1 - Tdap) 1968 Hepatitis B Screening 1975 Pneumococcal vaccine 65+ (1 of 1 - PCV) 2007 Zoster Vaccine (1 of 2) 2007 Well Visit 65+ 2022 09/05/2021 Breast Cancer Screening-Mammogram 02/03/2025 02/04/2024, 12/10/2022, 09/13/2021, Additional history exists Influenza Vaccine (Season Ended) 2025 Cervical Cancer Screening Discontinued 09/05/2021 Procedures Procedure Name Priority Date/Time Associated Diagnosis Comments SCREENING MAMMOGRAM BILATERAL W ENDER Schedule Routine, Read Routine (OP Routine) 02/04/2024 2:53 PM CDT Screening mammogram, encounter for THINPREP PAP WITH HPV Routine 09/05/2021 9:49 AM FOREST TECHNICIAN from Last 3 Months or Most Recently Relevant to Health Maintenance Results * Screening Mammogram Bilateral W Ender (02/04/2024 2:53 PM CDT) Anatomical Region Laterality Modality Breast Bilateral Mammography Impressions 02/04/2024 3:51 PM CDT BI-RADS ATLAS category (overall): 1 - Negative There is no mammographic evidence of malignancy. A 1 year screening mammogram is recommended. The patient has been or will be contacted. We recommend annual screening mammography for women at average risk of breast cancer beginning at age 40, based on guidelines of the [employer] (ACR Practice Parameter for the Performance of Screening and Diagnostic Mammography) and [employer]. For women [...] in the CC and MLO projections. CLINICAL: Screening mammogram, encounter for. No relevant medical history has been documented for this patient. History of breast cancer in Mother, Sister, Paternal [...] ThinPrep Pap with HPV (09/05/2021 9:49 AM FOREST TECHNICIAN) Pap test 09/05/2021 9:49 AM FOREST TECHNICIAN 09/06/2021 9:49 AM FOREST TECHNICIAN Narrative 09/11/2021 2:13 PM FOREST TECHNICIAN [facility] Department of Pathology [address] [place] [address] Final Report with Addendum Note to Patients: [...] questions and explain the details. Patient Name: JIHAN WASHINGTON Address: [address] [place] [address] Gender: F : 1955 (Age: 65) Service: Laboratory Location: [facility] #: [id number] Patient Type: [facility] SPECIMEN Taken: 09/05/2021 Received: 09/06/2021 Accessioned:: 09/10/2021 Reported: 09/11/2021 Physician(s): Martin Lara M.D. [facility] Diagnosis: Source of Specimen: Imaged Thinprep Pap Test plus HPV - Pneumatic Drum Sander Cytologic Material Specimen Adequacy: - Specimen satisfactory for evaluation (vaginal pap) General Category: - Negative for intraepithelial lesion or malignancy DANIEL Lynn(ASCP) Report Electronically Reviewed and Signed Out By SKYLAR LynnASCP) 09/11/2021 14:13:29 Addenda: HPV Test Interpretation NEGATIVE for types 16, 18, 31, 33, 35, 39, 45, 51, 52, 56, 58, 59, 66 and 68. Test performed utilizing Gen-Probe Aptima assay. DANIEL Lynn(ASCP) Report Electronically Reviewed and Signed Out By DANIEL Lynn(ASCP) 09/10/2021 14:51:48 Specimen(s) Received: A: Imaged Thinprep Pap Test plus HPV - Pneumatic Drum Sander Cytologic Material Clinical History: Menstrual History: Hysterectomy The Pap test is a screening test used to aid in the detection of cervical cancer and its precursors. It should not be the sole means by which malignant and premalignant lesions are diagnosed. Both false negative and false positive results may occur. It also has poor sensitivity for the detection of endometrial lesions and should not be used to evaluate suspected endometrial abnormalities. For these reasons it is most important to obtain Pap tests at regular intervals. The performance characteristics of some immunohistochemical stains, fluorescence in-situ hybridization tests and immunophenotyping by flow cytometry cited in this report (if any) were determined by the Surgical Pathology Department at [facility] as part of an ongoing clinical quality assurance associate program and in compliance with federally mandated regulations drawn from the Clinical Laboratory Improvement Act of 1988 (CLIA '88). Some of these tests rely on the use of analyte specific reagents and are subject to specific labeling requirements by the US Food and Drug Administration. Such diagnostic tests may only be performed in a facility that is certified by the Department of Health and Human Services as a high complexity laboratory under CLIA '88. The FDA has determined that such clearance or approval is not necessary. This test is used for clinical purposes. It should not be regarded as investigational or for research. Nevertheless, federal rules concerning the medical use of analyte specific reagents require that the following disclaimer be attached to the report: This test was developed and its performance characteristics determined by the Surgical Pathology Department [facility]. It has not been cleared or approved by the U. S. Food and Drug Administration. Martin Lara MD LAB CYTOLOGY ORDERABLES Final Result from Last 3 Months or Most Recently Relevant to Health Maintenance Insurance [place] [facility] MEDICARE ADVANTAGE Care Teams Jeeper Operator Relationship Specialty Start Date End Date Terrance Gipson MD [address] [facility] [address] [place] [address] PCP - General 01/28/14
--- OUTSIDE RECORDS SUMMARY | 2025-02-15 11:30 | XMS_ITS | Clinical Summary ---
Author Organization [facility] Address [address] [place] [address] Care Team Providers Care Internal Auditor Name Role Phone Terrance Gipson MD Primary Care Provider [phone] Source Comments [facility],non-owned Affiliates and Associated Physician Practices is amultiple site organization consisting of ambulatory clinics and hospital sitesin [place], [place], [place] and [place]. This disclosure is being madepursuant to the Care Everywhere program and may not contain all information available regarding this patient. Last updated 18.[facility] Allergies No known active allergies Medications * Be aware that medications may not be up to date on this document. Alwaysverify current medications with the patient. 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 Gender Identity Not on file Sexual Orientation Not on file Last Filed Vital Signs Vital Sign Reading Time Taken Comments Blood Pressure 119/75 06/04/2016 2:24 PM CDT Pulse 80 06/04/2016 2:24 PM CDT Temperature 36.7 C (98.1 F) 06/04/2016 2:24 PM CDT Respiratory Rate 20 06/04/2016 2:24 PM CDT Oxygen Saturation - - Inhaled Oxygen Concentration - - Weight 70.3 kg (155 lb) 06/04/2016 2:24 PM CDT Height 162.6 cm (5' 4) 06/04/2016 2:24 PM CDT Body Mass Index [...] VACCINE (1 - 2023-2 5 season) 2024 DEPRESSION SCREENING 09/15/2024 INFLUENZA VACCINE (Season Ended) 2025 Respiratory Syncytial Virus (RSV) Vaccine Pt: or [...] to complete this topic MENINGOCOCCAL (Group B) VACC INE SHARED DECISION-MAKING Aged Out No longer eligibl e based on patient's age to complete this topic MENINGOCOCCAL GROUPS A/C/Y/W VACCINE Aged Out No longer eligible b ased on patient's age to complete this topic Insurance Care Teams Internal Auditor Relationship Specialty Start Date End Date Terrance Gipson MD [address] [place] [address] PCP - General Family Medicine 12/28/13
--- OUTSIDE RECORDS SUMMARY | 2025-02-15 11:30 | XMS_ITS | Encounter Summary ---
Author Organization [facility] [employer] [facility] Address [address] [place] [address] Care Team Providers Care Financial Operations Analyst Name Role Phone Unavailable Primary Care Provider Unavailabl e Reason for Referral * Radiology Services (Routine) - Closed Specialty Diagnoses / Procedures Referred By Contac t Referred To Contact Diagnoses Neutropenia, unspecified type Procedures US ABDOMEN COMPLETE Curtis Milton MD [address] [address] Phone: tel: fax: [facility] [address] [address] Phone: tel: fax: Referral ID Status Reason Start Date Expiration Date V isits Requested Visits Authorized [id number] Closed [facility] CTS 02/15/2025 03/18/2026 1 1 Reason for Visit * Reason Comments Establish Care Encounter Details Date Type Department Care Team (Late st Contact Info) Description 02/15/2025 10:30 AM CDT Office Visit [facility] Oncology and Hematology - Nasir [address] [place] [address] [facility] [address] [place] [address] Curtis Milton MD [address] [facility] [address] [place] [id number] Neutropenia, unspecified type (Primary Dx); Chronic anemia Social History Tobacco Use Types Packs/Day Years Used Date Smoking Tobacco: Never Smokeless Tobacco: Never Alcohol Use Standard Drinks/Week Comments Yes 2 (1 standard drink = 0.6 oz pur e alcohol) everyday Comments Unknown Sex and Gender Information Value Date Recorded Sex Assigned at Not on file Legal 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 Problem list There is no problem list on file for this patient. Previous TREATMENT ? Measurable Disease ? Reason for Visit Jihan Rosario is a 69 y.o. female who was referred for consultation for leukopenia. History of present illness This is a pleasant 69-year-old female with history of hypertension, hypothyroidism, gastroesophageal reflux disease and chronic leukopenia referred to me for leukopenia. 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 She has not been officially diagnosedwith any autoimmune disease. Denies any rash. Her weight and appetite stable. Denies any bleeding in cluding melena and hematochezia. Her labs from October 2024 showed WBC count of 2.8 hemoglobin of 12.7 and platelet of 245,000. She drinks 4-5 beers a day for more than 20 years duration but has notbeen diagnosed with any liver disease previously. She has been dealing with elevated liver enzymes off and on basis. Currently she is asymptomatic with no fevers and chills. Denies any new lumps bumps or lymphadenopathy. No other new complaints. Past Medical History Past Medical History: Diagnosis Date Hypertension Hypothyroidism GERD Surgical History Past Surgical History: Procedure Laterality Date HX CARPAL TUNNEL RELEASE Right 1983 HX ELBOW SURGERY 1997,1998? HX HYSTERECTOMY 2001 HX KNEE SURGERY 2023 Medications Current Outpatient Medications Medication Sig Dispense Refill levothyroxine 100 mcg tablet Take 100 mcg by mouth daily in the morning. hydroCHLOROthiazide 25 mg tablet Take 25 mg by mouth daily. ascorbic acid, vitamin C, (Vitamin C) 1,000 mg Tablet Take 1,000 mg by mouth daily. Ca comb no.1/vit D3/B6/FA/B12 (VITAMIN D3, CALCIUM CIT-PHOS, ORAL) Take by mouth daily. zinc GLUCONATE 50 mg Tablet Take 50 mg by mouth daily. omeprazole (PriLOSEC) 40 mg Capsule, Delayed Release(E.C.) Take 40 mg by mouth daily before breakfast. No current facility-administered medications for this visit. Allergies No Known Allergies Immunizations: There is no immunization history on file for this patient. Family History Family History Problem Relation Name Age of Onset Prostate Cancer Father Breast Cancer Mother Heart Disease Mother Diabetes Mother Esophageal Cancer Brother Diabetes Brother Heart Disease Brother Prostate Cancer Brother No Known Problems Brother Other Problems (neck cancer) Brother Diabetes Brother Breast Cancer Sister No Known Problems Sister Ovarian Cancer Sister No Known Problems Child Social History Social History Tobacco Use Smoking status: Never Smokeless tobacco: Never Substance Use Topics Alcohol use: Yes Alcohol/week: 2.0 standard drinks of alcohol Types: 2 Cans of beer per week Comment: everyday Review of Systems Constitutional: Patient did not mention fever; no night sweats; no anorexia; no weight loss; no fatique NEENT: Patient did not mention headache; no change in vision; no change in hearing; no sore throat;no dysphagia Respiratory: Patient did not mention shortness of breath; no pleuritic chest pain; no cough; no hemoptysis Cardiac: Patient did not mention cardiac-like chest pain; no palpitations; no orthopnea; no PND; noDOE Breasts: Patient did not mention tenderness; no masses GI: Patient did not mention abdominal pain; no nausea; no vomiting; no diarrhea; no hematochezia; no melena : Patient did not mention dysuria; no frequency; no hesitancy; no hematuria TANKAGE SUPERVISOR: Musculosketetal: Patient did not mention bone pain; no arthralgia; no joint swelling; no myalgia; Skin: Patient did not mention pruritis; no rash; no petechiae; no ecchymoses Endocrine: Patient did not mention polydipsia; no polyuria; no unusual weight gain Neuro: Patient did not mention headache; no change in vision; no sensory changes; no muscle weakness; no confusion; no seizures Psych: Patient did not mention anxiety; no depression; Physical Exam Vitals: As per nursing note Constitutional: Well developed, well nourished, no acute distress, non-toxic appearance Teeth and gum. No signs of infection or swelling. Eyes: PERRL, conjunctiva normal HEENT: Atraumatic, external ears normal, nose normal, oropharynx moist, no pharyngeal exudates. no sinus tenderness Neck- normal range of motion, no tenderness, supple Respiratory: No respiratory distress, normal breath sounds, no rales, no wheezing Cardiovascular: Normal rate, normal rhythm, no murmurs, no gallops, no rubs GI: Soft, nondistended, normal bowel sounds, nontender, no splenomegaly, no hepatomegaly, no mass, no rebound, no guarding : No costovertebral angle tenderness Musculoskeletal: No edema, no tenderness, no deformities. Back- no tenderness Integument: Well hydrated, no rash, Digits and nails inspection normal Lymphatic: No lymphadenopathy noted Neurologic: Alert & oriented x 3, CN 2-12 normal, normal motor function, normal sensory function, no focal deficits noted Psychiatric: Speech and behavior appropriate ? labs No results found for this or any previous visit (from the past 24 hours). Labs from October 2024 showed WBC 2.8 hemoglobin 12.7 MCV 96.1 platelet 245,000 total bilirubin 1.0 AST 38 ALT 34 Pathology ? Imaging & Other Studies Performance Status? Assessment / Plan: ? Leukopenia. Patient is a pleasant 69-year-old female with history of hypertension, hypothyroidism and gastroesophageal reflux disease. She denies any night sweats fevers and chills. Denies any bleeding and bruising. Her weight and appetite stable. Denies any new lumps bumps or lymphadenopathy. She denies any autoimmune disease. She does have some arthritis involving the hands. She drink 4-5 beers a day and has been doing it for last 20 years duration. She denies any history of liver disease but her labs showed elevated liver enzymes. I have discussed the differential diagnosis of leukopenia with the patient that includes autoimmune leukopenia, drug-induced leukopenia, nutritional d eficiencies, liver and spleen disorders, alcohol induced leukopenia and bone marrow disorder like myelodysplastic syndrome. I will order the workup that will include CBC with differential, CMP, iron profile, vitamin B12 level, ZENOBIA, flow cytometric analysis for leukemia panel as well as abdominal ultrasound. I have answered all the questions to patient satisfaction. Follow-up with me in 2 weeks. Hypothyroidism. Patient is on levothyroxine. Hypertension. Patient is on hydrochlorothiazide. Thank you very much for allowing me to participate in Jihan Rosario's evaluation and management.Please feel free to contact if I can be of any further assistance in your patient???s care requiring hematology or oncology evaluation. Sincerely, ? ? Curtis Milton M.D. cell TOBACCO COUNSELING She is not a tobacco/nicotine user. Curtis Milton MD ,02/15/2025 11:13 AM ? Total time spent 60 minutes, two third of the total time spent counseling patient [id number]. CC:?Doug Sharpe PA-C documented in this encounter Plan of Treatment Upcoming Encounters Date Type Department Care Team (Late st Contact Info) Description 03/01/2025 4:30 PM CDT Telephone Check Up [facility] Oncology and Hematology - Nasir [address] [facility] [address] [place] [address] Curtis Milton MD [address] [facility] [address] [place] [address] Scheduled Orders Name Type Priority Associated Diagnoses Orde r Schedule CBC WITH DIFFERENTIAL Lab Stat Neutropenia, unspecified type Expected: 02/15/2025, Expires: 02/15/2026 ZENOBIA SCREEN W/REFLEX Lab Routine Neutropenia, unspecified type Expected: 02/15/2025, Expires: 02/15/2026 COMPREHENSIVE METABOLIC PANEL Lab Stat Chronic anemia Expected: 02/15/2025, Expires: 02/15/2026 FERRITIN Lab Routine Chronic anemia Expected: 02/15/2025, Expires: 02/15/2026 IRON, TIBC, AND PERCENT SATURATION Lab Routine Chronic anemia Expected: 02/15/2025, Expires: 02/15/2026 VITAMIN B12 AND FOLATE Lab Routine Chronic anemia Expected: 02/15/2025, Expires: 02/15/2026 FLOW CYTOMETRY PANEL Lab Routine Neutropenia, unspecified type Expected: 02/15/2025, Expires: 02/15/2026 US ABDOMEN COMPLETE Imaging Routine Neutropenia, unspecified type 1 Occurrences starting 02/15/2025 until 02/15/2026 documented as of this encounter Visit Diagnoses Diagnosis Neutropenia, unspecified type- Primary Chronic anemia Anemia, unspecified documented in this encounter
--- OUTSIDE RECORDS SUMMARY | 2025-02-15 11:30 | XMS_ITS | Clinical Summary ---
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
--- OUTSIDE RECORDS SUMMARY | 2025-02-15 11:30 | XMS_ITS | Referral Summary ---
Author Organization [facility] [place] [address] Address [address] [place] [address] Care Team Providers Care Manager Document Control Name Role Phone Terrance Gipson MD Primary [...] on file Legal Sex Female 12:51 AM WORKPLACE REHABILITATION OFFICER Gender Identity Not on file Sexual Orientation Not on file Last Filed Vital Signs Vital Sign Reading Time Taken Comments Blood Pressure 128/82 09/05/2021 9:53 AM WORKPLACE REHABILITATION OFFICER Pulse 82 08/18/2019 11:30 AM WORKPLACE REHABILITATION OFFICER Temperature 36.6 C (97.9 F) 08/18/2019 11:30 AM WORKPLACE REHABILITATION OFFICER Respiratory Rate - - Oxygen Saturation 98% 08/18/2019 11:30 AM WORKPLACE REHABILITATION OFFICER Inhaled Oxygen Concentration - - Weight 76.7 kg (169 lb) 09/05/2021 9:53 AM WORKPLACE REHABILITATION OFFICER Height 163.8 cm (5' 4.49) 09/05/2021 9:53 AM CS T Body Mass Index 28.57 09/05/2021 9:53 AM WORKPLACE REHABILITATION OFFICER Plan of Treatment Not on file Procedures Procedure Name Priority Date/Time Associated Diagnosis Comments SCREENING MAMMOGRAM BILATERAL W ENDER Schedule Routine, Read Routine (OP Routine) 02/04/2024 2:53 PM CDT Screening mammogram, encounter for THINPREP PAP WITH HPV Routine 09/05/2021 9:49 AM WORKPLACE REHABILITATION OFFICER from Last 3 Months or Most Recently [...] age 42, based on guidelines of the [employer] (ACR Practice Parameter for the Performance of Screening and Diagnostic Mammography) and [employer]. For women [...] ThinPrep Pap with HPV (09/05/2021 9:49 AM WORKPLACE REHABILITATION OFFICER) Pap test 09/05/2021 9:49 AM WORKPLACE REHABILITATION OFFICER 09/06/2021 9:49 AM WORKPLACE REHABILITATION OFFICER Narrative 09/11/2021 2:13 PM WORKPLACE REHABILITATION OFFICER [facility] Department of Pathology [address] [place], [place] [id number] Final Report with Addendum Note to Patients: [...] the details. Patient Name: JIHAN WASHINGTON Address: [address] [place] [address] Gender: F : 1955 (Age: 65) Service: Laboratory Location: [facility] #: [id number] Patient Type: [facility] SPECIMEN Taken: 09/05/2021 Received: 09/06/2021 Accessioned:: 09/10/2021 Reported: 09/11/2021 Physician(s): Martin Lara M.D. [facility] Diagnosis: Source of Specimen: Imaged Thinprep Pap Test plus HPV - Talent Acquisition Operations Manager Cytologic Material Specimen Adequacy: - Specimen satisfactory [...] Reviewed and Signed Out By SKYLAR LynnASCP) 09/10/2021 14:51:48 Specimen(s) Received: A: Imaged Thinprep Pap Test plus HPV - Talent Acquisition Operations Manager Cytologic Material Clinical History: Menstrual History: Hysterectomy [...] determined by the Surgical Pathology Department at [facility] as part of an ongoing quality assurance calibrator program and in compliance with federally mandated [...] characteristics determined by the Surgical Pathology Department [facility]. It has not been cleared or approved by the U. S. Food and Drug Administration. Martin Lara MD LAB CYTOLOGY ORDERABLES Final Result from Last 3 Months or Most Recently Relevant to Health Maintenance Insurance [place] [facility] MEDICARE ADVANTAGE [facility] Address: [address] [address] [place] [address] Care Teams Manager Document Control Relationship Specialty Start Date End Date Terrance Gipson MD [address] [facility] [address] [place] [address] PCP - General 01/28/14
[2025-02-15 11:40] LABS: Basophils Percent Auto 0.9 % (0.2-1.2); Eosinophils Absolute Auto 0.1 K/mm3 (0-0.3); Eosinophils Percent Auto 2.3 % (0-4.4); Hemoglobin 13.5 g/dL (12.0-15.0); Immature Granulocyte Absolute 0.01 K/mm3 (0.00-0.031); Immature Granulocyte Percent A 0.3 % (0-0.5); Lymphocytes Absolute Auto 0.84 K/mm3 (0.9-3.2); Lymphocytes Percent Auto 24.4 % (18.3-44.2); Mean Corpuscular HGB Conc 34.6 g/dl (32-36); Mean Corpuscular Hemoglobin 33.1 pg (26-34); Mean Corpuscular Volume 95.6 fl (80-100); Mean Platelet Volume 9.3 fl (7.4-10.4); Monocytes Absolute Auto 0.3 K/mm3 (0.1-0.6); Neutrophils Absolute Auto 2.2 K/mm3 (1.3-6.7); Neutrophils Percent Auto 63.1 % (45.5-73.1); Platelet Count Result 237 k/mm3 (150-375); Red Blood Count 4.08 M/mm3 (4.2-5.4); Red Cell Distribution Width 12.8 % (11.5-14.5); White Blood Count 3.4 K/mm3 (4.5-10.0)
[2025-02-15 15:48] LABS: Iron 140 ug/dL (37-170)
[2025-02-15 15:59] LABS: Percent Iron Saturation 52 % (20-50)
[2025-02-15 17:37] LABS: Alanine Aminotransferase 40 U/L (6-35); Albumin Level 4.9 g/dL (3.5-5.1); Alkaline Phosphatase 79 U/L (38-126); Anion Gap 9 mmol/L (4-12); Aspartate Amino Transferase 55 U/L (14-36); Blood Urea Nitrogen 10 mg/dL (7-17); Calcium 9.8 mg/dL (8.4-10.2); Carbon Dioxide 28 mmol/L (22-30); Chloride 95 mmol/L (98-107); Estimated Glomerular Filt Rate > 60; Glucose 100 mg/dL (65-110); Potassium 4.1 mmol/L (3.4-5.0); Sodium 132 mmol/L (137-145); Total Protein 8.8 g/dL (6.3-8.2)
[2025-02-15 18:41] LABS: Folic Acid 10.5 ng/mL (2.76->20)
[2025-02-18 12:29] LABS: Anti Nuclear Antibody Pattern Nuclear, Speckled
== END 2025-02-15 11:20 | disposition home or self-care (01) ==
PROVIDERS: PCP Family Medicine; Visit Provider Internal Medicine Hematology & Oncology
DX: D70.9 Neutropenia, unspecified (principal); D64.9 Anemia, unspecified
CPT/HCPCS: 36415; 80053; 82607; 82728; 82746; 83540; 83550; 85025; 86038; 86039; 88184

== ENCOUNTER 2025-02-22 10:05 | Outpatient (CLI) | payer MEDICARE, SELFPAY ==
--- NOTE | ~2025-02-22 | US_ITS ---
Abdominal Sonogram: Real-time sonographic imaging of the abdomen was performed. Clinical History: Neutropenia Findings: The liver appears echogenic, with no evidence of solid mass lesion or bile duct dilatation . Main portal vein demonstrates normal direction of flow. Small left hepatic lobe cyst present. The s pleen is normal in size without evidence of focal lesion. The gallbladder is well distended, and song ears normal with no evidence of gallstone or wall thickening. The common bile duct measures 5 mm. Th e visualized pancreas, aorta, and IVC are unremarkable. The right kidney measures 10.0 cm in length and the left kidney measures 10.9 cm. There is no hydronephrosis or renal calculus. Impression: Diffuse fatty infiltration of the liver. Reviewed, dictated and finalized at location M. Impression: Diffuse fatty infiltration of the liver.
== END 2025-02-22 10:06 | disposition home or self-care (01) ==
LOC: MICIMG 10:06
PROVIDERS: PCP Family Medicine; Visit Provider Internal Medicine Hematology & Oncology
DX: D70.9 Neutropenia, unspecified (principal); K76.0 Fatty (change of) liver, not elsewhere classified
CPT/HCPCS: 76700

== ENCOUNTER 2025-05-25 11:35 | Outpatient (CLI) | payer MEDICARE, SELFPAY ==
[2025-05-25 11:55] LABS: Hematocrit 38.1 % (37.0-47.0); Hemoglobin 13.2 g/dL (12.0-15.0); Immature Granulocyte Percent A 0.3 % (0-0.5); Lymphocytes Absolute Auto 1.02 K/mm3 (0.9-3.2); Mean Corpuscular HGB Conc 34.6 g/dl (32-36); Mean Corpuscular Hemoglobin 32.4 pg (26-34); Mean Corpuscular Volume 93.6 fl (80-100); Nucleated Red Blood Cells Absolute Auto 0.000 K/mm3 (0.0-0.012); Nucleated Red Blood Cells Perc 0.0 % (0.0-0.2); Platelet Count Result 248 k/mm3 (150-375); Red Blood Count 4.07 M/mm3 (4.2-5.4); White Blood Count 3.4 K/mm3 (4.5-10.0)
--- OUTSIDE RECORDS SUMMARY | 2025-05-25 12:38 | XMS_ITS | Clinical Summary ---
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 Gender Identity Not on file Sexual Orientation Not on file Plan of Treatment Health Maintenance Due Date Last Done Comments Hepatitis C Virus (HCV) Screening 1955 TdaP Immunization 1955 Cologuard 2002 Colonoscopy 2002 Colorectal Cancer Screening 2002 Immunochemical Fecal Occult Blood 2002 Pneumococcal Immunization (5 0+ years) (1 of 1 - PCV) 2007 Zoster Immunization (1 of 2) 2007 SARS-COV-2 Immunization ( - season) 2024 Influenza Immunization (#1) 2025 Respiratory Syncytial Virus (RSV) Immunization (Adult) (1 - 1-dose 75+ series) 2032 Hepatitis B Immunization Aged Out No longer eligible based on patient's age to complete this topic Human Papillomavirus (HPV) Immunization Aged Out No longer eligible b ased on patient's age to complete this topic Meningococcal Immunization (ACWY) Aged Out No longer eligible based on patient's age to complete this topic Rotavirus Immunization Aged Out No lo nger eligible based on patient's age to complete this topic
--- OUTSIDE RECORDS SUMMARY | 2025-05-25 12:38 | XMS_ITS | Clinical Summary ---
Author Organization [facility] Address [address] [place] [address] Care Team Providers Care Supervisor Drilling And Shooting Name Role Phone Unavailable Primary Care Provider [...] Encounters Date Type Department Care Team Description 05/24/2025 External Device Data STL ABSTRACTION Provider, Abstract 04/20/2025 External Device Data STL ABSTRACTION Provider, Abstract 03/30/2025 External Device Data STL ABSTRACTION Provider, Abstract 03/08/2025 External Device Data STL ABSTRACTION Provider, Abstract 03/01/2025 4:30 PM CDT Telephone Check Up [facility] Oncology and Hematology - Nasir [address] [place] [address] Curtis Milton MD Chronic anemia (Primary Dx) 02/25/2025 Orders Only [facility] Oncology and Hematology - Nasir [address] [place] [address] Curtis Milton MD 02/22/2025 External Device Data STL ABSTRACTION Provider, Abstract 02/22/2025 External Device Data STL ABSTRACTION Provider, Abstract 02/22/2025 External Device Data STL ABSTRACTION Provider, Abstract 02/22/2025 Orders Only [facility] Oncology and Hematology [facility] [address] [place], [place] [address] [place] [id number] Curtis Milton MD from Last 3 Months Family History Medical [...] on file 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 Gender Identity Not on file Sexual Orientation [...] Care Team (Late st Contact Info) Description 06/09/2025 2:00 PM CDT Office Visit [facility] Oncology and Hematology - Nasir [address] [facility] [address] [place] [address] Curtis Milton MD [address] [facility] [address] [place] [address] Health Maintenance Due Date Last Done Comments Pre-Diabetes and Diabetes Screening 1955 DTAP/TDAP/TD VACCINES (1 - Tdap) 1976 COLORECTAL SCREENING 2002 Colorectal Cancer Screening 2002 FIT-DNA Q 3 years 2002 FIT/FOBT Q 1 year 2002 Flex Sig/CT Colonography Q 5 years 2002 PNEUMOCOCCAL VACCINE 50+ YEA RS (1 of 1 - PCV) 2007 ZOSTER VACCINE (1 of 2) 2007 OSTEOPOROSIS SCREENING 2022 Medicare Advantage (OR) Preventative Visit/Annual Wellness Visit 09/15/2024 09/05/2021 INFLUENZA VACCINE (#1) 2025 BREAST CANCER SCREENING 02/24/2026 02/25/20 25, 02/24/2025, 02/04/2024, Additional history exists RSV VACCINE (60+ or ) (1 - 1-dose 75+ series) 2032 Procedures Procedure Name Priority Date/Time Associated Diagnosis Comments US ABDOMEN COMPLETE Routine 02/22/2025 1:02 PM CDT from Last 3 Months Results * US ABDOMEN COMPLETE (02/22/2025 1:02 PM CDT) Anatomical Region Laterality Modality Abdomen Ultrasound us Curtis Milton MD US ORDERABLES Final Result from Last 3 [place] [address] [facility] [id number]
--- OUTSIDE RECORDS SUMMARY | 2025-05-25 12:38 | XMS_ITS | Encounter Summary ---
Author Organization [facility] Address [address] [place] [address] Care Team Providers Care Refrigerator Glazier Name Role Phone Unavailable Primary Care Provider Unavailabl e Encounter Details Date Type Department Care Team (Late st Contact Info) Description 05/24/2025 External Device Data [facility] ABSTRACTION Provider, Abstract NO ADDRESS ON FILE Social History Tobacco Use Types Packs/Day Years Used Date Smoking Tobacco: Never Smokeless Tobacco: Never Alcohol Use Standard Drinks/Week Comments Yes 2 (1 standard drink = 0.6 oz pur e alcohol) everyday Comments Unknown Sex and Gender Information Value Date Recorded Sex Assigned at Not on file Legal Sex Female 6:59 PM PROGRAM SERVICES ASSISTANT Gender Identity Not on file Sexual Orientation Not on file documented as of this encounter Plan of Treatment Upcoming Encounters Date Type Department Care Team (Late st Contact Info) Description 06/09/2025 2:00 PM CDT Office Visit [facility] Oncology and Hematology - Nasir [address] [place] [address] [facility] [address] [place] [address] Curtis Milton MD [address] [facility] [address] [place] [address] documented as of this encounter Visit Diagnoses Not on filedocumented in this encounter
--- OUTSIDE RECORDS SUMMARY | 2025-05-25 12:38 | XMS_ITS | Clinical Summary ---
Author Organization [facility] [address] Address [address] [place] [address] Care Team Providers Care Gambling Monitor Name Role Phone Terrance Gipson MD Primary [...] Diagnosed Date Hypothyroidism 12/28/2013 Overview (12/18/2016): Hypothyroidism Encounters Date Type Department Care Team Description 02/24/2025 8:48 AM CDT - 02/24/2025 11:59 PM CDT Hospital Encounter [facility] [address] [place] [address] Screening mammogram, encounter for Discharge Disposition: Discharge to home or self care from Last 3 Months Surgical History Surgery Date Site/Laterality Comments SECTION [...] on file Legal Sex Female 12:51 AM DRY KILN FEEDER Gender Identity Not on file Sexual Orientation Not on file Obstetrics History Para Term AB IAB SAB Ectopic Multiple Livin g Live Births 1 1 1 Date Outcome GA Total Labor Labor/2nd/3rd Weight Sex Type Anes PTL Coty A1 A5 Name Clin Term Comments 07/13 Lifetime risk 39.9% Last Filed Vital Signs Vital Sign Reading Time Taken Comments Blood Pressure 128/82 09/05/2021 9:53 AM DRY KILN FEEDER Pulse 82 08/18/2019 11:30 AM DRY KILN FEEDER Temperature 36.6 C (97.9 F) 08/18/2019 11:30 AM DRY KILN FEEDER Respiratory Rate - - Oxygen Saturation 98% 08/18/2019 11:30 AM DRY KILN FEEDER Inhaled Oxygen Concentration - - Weight 76.7 kg (169 lb) 02/24/2025 8:56 AM CDT Height 163.8 cm (5' 4.49) 02/24/2025 8:56 AM CD T Body Mass Index 28.57 02/24/2025 8:56 AM CDT Plan of Treatment Health Maintenance Due Date Last Done Comments Colon Cancer Screening-Colonoscopy 1955 Depression Screening 1955 Fall Risk Assessment 1955 Hepatitis C Screening 1955 Osteoporosis Screening-Bone Density Scan 1955 DTaP/Tdap/Td Vaccine (1 - Tdap) 1968 Hepatitis B Screening 1975 Pneumococcal vaccine 65+ (1 of 1 - PCV) 2007 Zoster Vaccine (1 of 2) 2007 Well Visit 65+ 2022 09/05/2021 Influenza Vaccine (#1) 2025 Breast Cancer Screening-Mammogram 02/24/2026 02/24/2025, 02/04/2024, 12/10/2022, Additional history exists Cervical Cancer Screening Discontinued 09/05/2021 Procedures Procedure Name Priority Date/Time Associated Diagnosis Comments SCREENING MAMMOGRAM BILATERAL W ENDER Schedule Routine, Read Routine (OP Routine) 02/24/2025 8:56 AM CDT Screening mammogram, encounter for THINPREP PAP WITH HPV Routine 09/05/2021 9:49 AM DRY KILN FEEDER from Last 3 Months or Most Recently Relevant to Health Maintenance Results * Screening Mammogram Bilateral W Ender (02/24/2025 8:56 AM CDT) Anatomical Region Laterality Modality Breast Bilateral Mammography Impressions 02/24/2025 9:12 AM CDT Bilateral No evidence of malignancy in either breast. OVERALL BI-RADS FINAL ASSESSMENT: 1 - Negative RECOMMENDATION: Recommend bilateral annual screening mammography. Narrative 02/24/2025 9:12 AM CDT EXAMINATION: Screening Mammogram Bilateral W Ender: 02/24/2025 COMPARISON: Relevant prior studies available at the time of interpretation were reviewed. TECHNIQUE: Mammography was performed with 2D and digital breast tomosynthesis (DBT) images. CAD was utilized. BREAST PARENCHYMAL COMPOSITION: The breasts are extremely dense, which lowers the sensitivity of mammography. FINDINGS: Bilateral There is no suspicious mass, calcification, or architectural distortion in either breast. us Self Screening Mammogram IMG MAMMO PROCEDURES Fi nal Result * ThinPrep Pap with HPV (09/05/2021 9:49 AM DRY KILN FEEDER) Pap test 09/05/2021 9:49 AM DRY KILN FEEDER 09/06/2021 9:49 AM DRY KILN FEEDER Narrative 09/11/2021 2:13 PM DRY KILN FEEDER [facility] Department of Pathology [address] [place] [address] Final Report with Addendum Note to Patients: [...] the details. Patient Name: JIHAN WASHINGTON Address: [address] [place] [address] Gender: F : 1955 (Age: 65) Service: Laboratory Location: N : [id number] [facility] #: [id number] Patient Type: [facility] SPECIMEN Taken: 09/05/2021 Received: 09/06/2021 Accessioned:: 09/10/2021 Reported: 09/11/2021 Physician(s): Martin Lara M.D. [facility] Diagnosis: Source of Specimen: Imaged Thinprep Pap Test plus HPV - Quality Tech Cytologic Material Specimen Adequacy: - Specimen satisfactory for evaluation (vaginal pap) General Category: - Negative for intraepithelial lesion or malignancy DANIEL Lynn(ASCP) Report Electronically Reviewed and Signed Out By DANIEL Lynn(ASCP) 09/11/2021 14:13:29 Addenda: HPV Test Interpretation NEGATIVE for types 16, 18, 31, 33, 35, 39, 45, 51, 52, 56, 58, 59, 66 and 68. Test performed utilizing Gen-Probe Aptima assay. DANIEL Lynn(ASCP) Report Electronically Reviewed and Signed Out By DANIEL Lynn(ASCP) 09/10/2021 14:51:48 Specimen(s) Received: A: Imaged Thinprep Pap Test plus HPV - Quality Tech Cytologic Material Clinical History: Menstrual History: Hysterectomy [...] determined by the Surgical Pathology Department at [facility] as part of an ongoing quality worker program and in compliance with federally mandated [...] characteristics determined by the Surgical Pathology Department [facility]. It has not been cleared or approved by the [place]. [place]. Food and Drug Administration. Martin aLra MD LAB CYTOLOGY ORDERABLES Final Result from Last 3 Months or Most Recently Relevant to Health [place] [address] [place] [address] [place] [address] [place] [address] [facility] MEDICARE ADVANTAGE Care Teams Gambling Monitor Relationship Specialty Start Date End Date Terrance Gipson MD [address] [facility] [address] [place] [address] PCP - General 01/28/14
--- OUTSIDE RECORDS SUMMARY | 2025-05-25 12:38 | XMS_ITS | Clinical Summary ---
Author Organization [facility] [employer] Address [address] [place] [place] [address] Care Team Providers Care Grey Roll Man Name Role Phone Terrance Gipson MD Primary Care Provider [phone] Source Comments [facility] [employer],non-owned Affiliates and Associated Physician Practices is amultiple site organization consisting of ambulatory clinics and hospital sitesin [place], [place], [place] and [place]. This disclosure is being madepursuant to the Care Everywhere program and may not contain all information available regarding this patient. 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
[2025-05-25 16:33] LABS: Iron 139 ug/dL (37-170)
[2025-05-25 16:40] LABS: Alanine Aminotransferase 29 U/L (6-35); Albumin Level 4.7 g/dL (3.5-5.1); Alkaline Phosphatase 68 U/L (38-126); Anion Gap 10 mmol/L (4-12); Aspartate Amino Transferase 50 U/L (14-36); Bilirubin,Total 1.0 mg/dL (0.2-1.3); Blood Urea Nitrogen 11 mg/dL (7-17); Calcium 9.3 mg/dL (8.4-10.2); Carbon Dioxide 26 mmol/L (22-30); Chloride 93 mmol/L (98-107); Estimated Glomerular Filt Rate > 60; Glucose 93 mg/dL (65-110); Potassium 4.1 mmol/L (3.4-5.0); Sodium 129 mmol/L (137-145); Total Protein 8.1 g/dL (6.3-8.2)
[2025-05-25 16:43] LABS: Percent Iron Saturation 49 % (20-50)
[2025-05-25 17:10] LABS: Ferritin 322.00 ng/mL (11.1-264)
== END 2025-05-25 11:36 | disposition home or self-care (01) ==
LOC: ANHLAB 11:36
PROVIDERS: PCP Family Medicine; Visit Provider Internal Medicine
DX: D64.9 Anemia, unspecified (principal)
CPT/HCPCS: 36415; 80053; 82728; 83540; 83550; 85025